=== PATIENT | male | born 1995 | race Caucasian/White ===

== ENCOUNTER 2023-03-31 05:54 | Day surgery (SDC) | payer BC, MEDICAID, SELFPAY ==
[2023-03-31] VITALS (8 sets, daily range): BP systolic 113–153; BP diastolic 73–95; PULSE 73–97; RESP 16–18; TEMP 36.2–36.6; O2SAT 94–99; BMI 35.6
--- NOTE | 2023-03-31 | GALL_PTH ---
PATIENT: BLAZE MONTEMAYOR LOC: [facility] – [place] U#:[id number] AGE/SX: 27/M ROOM: RE03/31/[address]: Dr. Jose Rice MD : 1995 BED: DIS: 03/31/2023 SPEC #: [id number] RECD: 03/31/23 10:51 STATUS: YOLANDA REEugene #: [id number] CARYN: 03/31/23 00:[address]: Jose Rice DEPT: SURGICAL PATHOLOGY RECD BY: Kolby Lyons ENTERED: 03/31/23 10:51 SP TYPE: VICENTE BRISENO DR: Teodoro Lopes, CHIEF RESERVOIR ENGINEERING-C Tissues: Gallbladder, NOS Procedures: Surgery Specimen Level III HEADER OPERATION: Laparoscopic cholecystectomy with IOC PRE-OP DIAGNOSIS: Biliary colic, cholelithiasis TISSUE SUBMITTED: Gallbladder MICROSCOPIC DIAGNOSIS Gallbladder, cholecystectomy: Chronic cholecystitis, cholelithiasis and cholesterolosis. SJ:mike 04/01/2023 MICROSCOPIC DESCRIPTION Slides are reviewed. GROSS DESCRIPTION Received is one container labeled with the patient's name and designated gallbladder. The specimen consists of a gallbladder measuring 6.2 cm in length and up to 2.5 cm in diameter. The external surface is pink-cole, smooth and glistening for the most part. Focally it is granular, hemorrhagic and contains cautery artifact. The gallbladder contains green-yellow mucoid bile and one greenish-yellow stone measuring 1.5 x 1.0 x 1.0 cm. The mucosa also shows several yellowish streaks consistent with cholesterolosis. The mucosa is bile-stained and without any mass lesions. The gallbladder wall measures up to 0.2 cm in thickness. Welding Pantograph Machine Operator sections from the gallbladder and the cystic duct are submitted in one cassette. / SILVINO:mike 03/31/2023 TC:3 CPT: 07573
--- NOTE | 2023-03-31 06:30 | RAD_ITS ---
STUDY: INTRAOPERATIVE CHOLANGIOGRAM. REASON FOR EXAM: Male, 27 years old. PAIN -- RUQ PAIN AND VOMITING FLUOROSCOPY TIME (if supplied): ( 13 seconds ) minutes/seconds. 5.24 mGy TECHNIQUE: An intraoperative cholangiogram was performed by the surgeon. Imaging was submitted. COMPARISON: None. FINDINGS: The intrahepatic biliary ducts are unremarkable. No intraluminal filling defect is seen. Free flow of contrast is seen in the duodenum. RAD/Cholangiogram/ O R,Initial IMPRESSION: Unremarkable intraoperative Cholangiogram. Electronically Signed: Tarik Neal MD at 15:12 EDT ,
[2023-03-31] MEDS: Lactated Ringers 1,000 ML 15 ML IV ×2 (06:48→08:47)
--- NOTE | 2023-03-31 06:50 | PCM.HP.BLA ---
History and Physical Date of Admission: 03/31/23 Intake Vital Signs ? 03/17/2314:44 Height 5 ft 10 in Weight: 248 lb BMI 35.6 BP 130/84 H Blood Pressure Location Rt brachial Position Sitting Respiration 16 Pulse 101 H Pulse Source Monitor Temp 97.3 F L Temp Source Temporal Pulse Oximetry (%) 97 Intake Visit Reasons:?CYCLICAL VOMITING/DYSHAGIA/ACID REGURGITATION Chief Complaint: nausea /vomitting/ dyshagia/acid regurgitation Allergies No Known Allergies Allergy (Unverified 03/17/23 14:46) Medications bupropion HCl 300 mg 24 hr tablet, extended release (Wellbutrin XL) 300 mg PO QAM 03/17/23 [History Confirmed 03/17/23] docusate sodium 100 mg capsule (Colace) 100 mg PO DAILY 03/17/23 [History Confirmed 03/17/23] polyethylene glycol 3350 17 gram/dose oral powder (Miralax) 4 g PO DAILY PRN constipation 03/17/23 [History Confirmed 03/17/23] promethazine 12.5 mg tablet 12.5 mg PO Q6H PRN 03/17/23 [History Confirmed 03/17/23] PFSH Family History?(Updated 03/17/23 @ 14:44 by Jennifer Ng) Grandmother ArthritisUncle Colon cancerMother DiabetesGrandfather Heart disease HPI HPI HPI: Patient is a 27-year-old male here with right upper quadrant pain and vomiting.? Patient has also been spearing seeing nausea and vomiting.? He reports that the pain happens about an hour or 2 after eating.? Patient denies any blood in his vomit.? He does report that he has been having weight loss due to not eating. ROS General General: Yes weight change and fatigue; No appetite, colon cancer, breast cancer or weakness HEENT HEENT: No difficulty swallowing, eye injury, eye surgery, swollen glands or hoarseness Endo Endocrine: No thyroid disease, diabetes mellitus, thyroid cancer, Hair loss, heat intolerance or cold intolerance Skin Skin: No rash or changing moles Breast Breast: No left breast lump, right breast lump, nipple discharge, breast pain, abnormal mammogram, abnormal US or breast enlargement Musc Musculoskeletal: No back problems, arthritis, rheumatoid arthritis, gout or joint pain Cardio Cardiovascular: No murmur, pacemaker, heart disease, atrial fibrillation, high blood pressure, heart attack, heart stent, palpitations, shortness of breat with exertion or chest pain Psych Psychiatric: Yes anxiety; No depression or hearing voices Resp Respiratory: No shortness of breath, No sleep apnea, No cough, No COPD, No asthma, No emphysema and No wheezing Gastro Gastrointestinal: Yes abdominal pain, Yes nausea or vomiting, Yes diarrhea, Yes constipation, No blood in stool, Yes acid reflux, Yes hemorrhoids, No ulcers, Yes gallbladder problem and No black,tarry stools Mikey Hematologic: No blood thinners, No blood disorders, No bleeding, No anemia and No blood clots Neuro Neurologic: No system reviewed and no additional complaints, except as documented, No as per HPI, No abnormal gait, No abnormal hearing, No abnormal movements, No abnormal speech, No behavioral changes, No burning sensations, No confusion, No convulsions, No disequilibrium, No dizziness, No localized weakness, No frequent falls, No headache(s), No lack of coordination, No loss of vision, No memory loss, No numbness, No other visual disturbances, No radicular pain, No restless legs, No sensory deficit, No syncope, No tingling, No tremor(s), No weakness and No other Exam Const General: cooperative Orientation: alert and oriented x3 HENMT Head: normal to inspection Neck Neck: normal visual inspection and full ROM Chest Chest palpation & inspection: normal inspection of the chest Resp Effort & Inspection: normal respiratory effort Auscultation: clear to auscultation bilaterally Cardio Rate: regular rate Rhythm: regular rhythm GI Inspection: non-distended Palpation: soft and tender in the RUQ Skin General: no rashes or lesions noted Neuro General: patient alert and patient oriented x3 Extrem General: full ROM Psych Appearance: grossly normal Mental Status: mental status grossly normal Assessment and Plan Assessment and Plan (1) Biliary colic: ?Status:?Acute (2) Cholelithiasis: ?Status:?Acute ?Qualifiers: ?Cholelithiasis location:?gallbladder??Cholecystitis presence:?without cholecystitis??Biliary obstruction:?without biliary obstruction? Qualified Code(s):?K80.20 - Calculus of gallbladder without cholecystitis without obstruction Plan The patient had an ultrasound shows a gallstone in the neck of the gallbladder.? The patient is also been having nausea and right upper quadrant pain.? I recommended laparoscopic cholecystectomy.? I believe this will take care of his pain and his nausea but if it does not I will perform an EGD. I discussed the procedure in detail with the patient.? I discussed the risks, benefits, and alternatives of the procedure.? I discussed the risks including but not limited to bleeding, infection, injury to surrounding organs such as the liver, bile duct, bowels.? I did discuss the possibility of having to convert to an open procedure as well as the possibility that if any injuries occurred this may necessitate further surgery at a tertiary care center. Jose Rice MD Pager: [facility] [address] [place] [address], [address] [place] [address] Office: I have seen and examined the patient, I have reviewed the H&P. There are no changes
[2023-03-31] MEDS: Cefotetan 2 GM in 0.9% NS 100 ML IV (07:34)
[2023-03-31] MEDS: Bupivacaine 0.25% 30 ML Vial (08:11)
--- NOTE | 2023-03-31 08:17 | EKG12_ITS ---
Test Reason : PREOP Blood Pressure : / mmHG Vent. Rate : 099 BPM Atrial Rate : 099 BPM P-R Int : 180 ms QRS Dur : 094 ms QT Int : 340 ms P-R-T Axes : 059 062 038 degrees QTc Int : 436 ms Normal sinus rhythm Nonspecific ST abnormality Abnormal ECG No previous ECGs available Confirmed by YVETTE ROQUE, JENA ([id number]), editor school photograph PRICILLA JACKSON ([id number]) on 04/06/2023 12:25:50 PM Referred By: Jose Rice Confirmed By:JENA CRAWFORD MD
[2023-03-31] MEDS: Sugammadex Sodium 200 MG/2 ML VIAL IV (08:19)
--- NOTE | 2023-03-31 08:36 | OP.PCM_ITS ---
Report of Operation Date of Procedure: 03/31/23 Pre-Operative Diagnosis: Biliary colic and biliary dyskinesia Post-Operative Diagnosis: Same Surgery/Procedure Performed:: Laparoscopic cholecystectomy with cholangiogram Specimen's removed: Gallbladder Description of Procedure: After obtaining informed consent patient was brought back to the operating room. General anesthesia was induced. The abdomen was prepped and draped in usual sterile fashion. A small midline incision was made superior to the umbilicus and deepened to the level of fascia. The fascia was elevated and incised. Next the peritoneum was elevated and incised in the same fashion. Finger sweep was performed and the Covarrubias trocar was placed into the abdomen. The balloon was inflated. The abdomen was inflated to 15 mmHg. Next a camera was introduced into the abdomen and the abdomen was inspected. Next under direct visualization three 5-mm ports were placed one subxiphoid and 2 subcostal. Next the gallbladder was elevated and retracted toward the right shoulder. The peritoneum was stripped from the gallbladder. The infundibulum was located and retracted laterally. Next the triangle of Calot was dissected and the cystic duct and cystic artery were identified. Cholangiograms were performed. The Tabares clamp was used to clamp across the infundibulum and the catheter needle was inserted into the gallbladder. Under fluoroscopy contrast was instilled into the gallbladder and the common duct, cystic duct as well as proximal hepatic ducts were identified. There was good filling of the duodenum. There were no filling defects noted in the common bile duct. The clamp was removed as well as the needle and the infundibulum was grasped once more. Three hemolock clips were placed across the cystic duct. The cystic duct was then divided leaving 2 clips on the stump. The cystic artery was clipped and divided in the same fashion. The hook cautery was then used to take the gallbladder off of the gallbladder bed. There was some spillage of bile from the side of the gallbladder which was entered during taking the gallbladder off the liver bed. Hemostasis was obtained. Gallbladder fossa was irrigated and no active bleeding or bile leakage was noted. Next the camera was introduced in the subxiphoid port. An Endopouch bag was placed through the umbilical port and the gallbladder was placed into it. The gallbladder was then removed through the umbilical incision. The camera was then reinserted through the umbilical port. The gallbladder fossa was inspected once more and noted to be hemostatic with no leaking bile. The abdomen was suctioned dry. The 5 mm ports were removed under direct visualization. The umbilical port was then removed and the air was removed from the abdomen. Next using an 0 Vicryl suture the umbilical fascia was closed in a [id number] fashion. The umbilical port site was irrigated local anesthetic was administered to all the incisions. All the incisions were closed with interrupted subcuticular 4-0 Monocryl sutures followed by Steri- Strips and dressings. The patient was awoken and taken to PACU in stable condition. Admit VTE Documentation VTE Mechan Device Prophylaxis: SCD's
--- NOTE | 2023-03-31 08:37 | DCINST_ITS ---
Discharge Instructions Procedure Gallbladder Diet Discharge Diet: Light diet - advance as tolerated Activity Discharge Activity: May Not Drive (for 2-3 days or while taking narcotic pain medications.) and - (Do not drive, work heavy equipment or sign legal documents for 24 hours.) May shower in (days): 1 Lifting Restrictions: 20 lbs for 2 weeks Additional Activity Instructions:: Pain medication may cause nausea. You should typically eat light foods as you take your pain medications. Pain medication may also cause constipation. If this is a problem for you, please discuss with your doctor. Dressing / Incision Call your doctor if your incision/area has: Continuous Slow Oozing, Sudden Increased Bleeding, Increased Pain/ Swelling, Increased Redness and Foul Smelling Discharge Call your doctor if you observe: Fever of 101 or Higher Suture Line Care: Avoid Pulling/Pushing and Avoid Pinching/Bending Remove Dressing in: 2 days Additional Dressing/Incision Instructions:: Leave operative bandaids on for 2 days. When you remove dressing, leave Steri-Strips on until your follow-up appointment, or until the Steri-Strips fall off on their own. Follow Up Care Please Follow Up With: Jose Rice MD When: Please call to schedule 2 week follow up appointment. [phone] Test Results: Test results from this visit will be discussed in further detail at your follow- up appointment, if applicable. Discharge Plan Admission Attending Provider: Jose Rice Primary Care Provider: Teodoro Lopes FINISHING MACHINE OPERATOR AUTOMATIC Instructions Additional Instructions / Restrictions: Ibuprofen and Tylenol for pain, oxycodone for breakthrough pain. Discharge Orders/Prescriptions Prescriptions: New oxycodone 10 mg tablet 5 - 10 mg PO Q6H PRN (Reason: pain) 5 Days Qty: 20 0RF No Action promethazine 12.5 mg tablet 25 mg PO Q6H PRN (Reason: Nausea) polyethylene glycol 3350 [Miralax] 17 gram/dose powder 17 g PO DAILY PRN (Reason: constipation) bupropion HCl [Wellbutrin XL] 300 mg tablet extended release 24 hr 300 mg PO QAM docusate sodium [Colace] 100 mg capsule 100 mg PO DAILY famotidine 40 mg tablet 40 mg PO DAILY Label Comments: TAKE 1 TABLET BY MOUTH AT BEDTIME omeprazole 40 mg capsule,delayed release(DR/EC) 40 mg PO DAILY Label Comments: TAKE 1 CAPSULE BY MOUTH EVERY DAY Referrals / Follow Up: Teodoro Lopes FINISHING MACHINE OPERATOR AUTOMATIC, FINISHING MACHINE OPERATOR AUTOMATIC-C [Primary Care Provider] - Disposition Disposition (needs filled in before D/C Order can be placed): Home, Self Care
[2023-03-31] MEDS: Ketorolac 30 MG/ML Syringe IV (08:51)
[2023-03-31] MEDS: Acetaminophen 325 MG Tablet 650 MG PO (10:20)
== END 2023-03-31 10:55 | disposition home or self-care (01) ==
LOC: SDC 05:58 → AC 05:59
PROVIDERS: PCP Nurse Practitioner Family; Referring Provider Surgery; Visit Provider Surgery
PROC: (CPT 47610; principal; 2023-03-31 07:10)
DX: K80.10 Calculus of gallbladder with chronic cholecystitis without obstruction (principal); Z79.899 Other long term (current) drug therapy
CPT/HCPCS: 47563; 00790; 74300; 76000; 88304; 93005; J7120; J2405

== ENCOUNTER 2023-08-08 08:00 | Outpatient (RCR) | payer BC, SELFPAY ==
--- NOTE | 2023-08-08 10:18 | BH.SGPN.GN ---
Behaviors/Verbalizations/Mental Status: []Pt alert and oriented, casually dressed and groomed. Eye contact good. Motor activity appropriate. Speech within normal limits. Affect congruent, mood euthymic. Thoughts linear, logical, no signs of hallucinations or delusions. Client Response/Progress/Benefit: [] Pt was attentive in group discussions, it is his first day of IOP tx and therefore is still adjusting to group environment. Attentive during psychoeducation on 4 types of conflict styles (Competing, Collaborating, Avoiding, and Accommodating). Listened as group worked to define conflict and identify how conflict can be beneficial. Again remained attentive, though a passive participant, as group identified barriers to addressing or managing conflict which included: not wanting to hurt others, unmanaged emotions, assumptions, and cognitive distortions. Benefited from group due to increase insight and awareness of benefits to conflict, conflict styles, and obstacles to managing conflict. Will continue in IOP to reduce negative thinking patterns, improve mood stability, and prevent decompensation. Narrative Note: []
--- NOTE | 2023-08-08 11:05 | BH.COMM ---
Communication Note Communication with Client Communication Note: Met with patient to complete initial paperwork. No significant changes since pre-admission assessment. Has been continuing with weekly counseling with therapist (Kolby). Medication compliant. Continues to attend work daily. Completed C-SSRS. Pt reports long-standing daily fleeting suicidal thoughts and survival ambivalence. Pt states that he is currently at or near his baseline for suicidal thoughts. No specific trigger to worsening thoughts over the past 2 years. Endorses fleeting SI throughout the day and some thoughts of methods (cutting self). Denies any plan or intent in the past month. One previous SA in 2017. Protective factors (pets, family, reasons for living, work). Future-oriented (work, moving back in with parents). Has a completed safety plan through his outpatient therapist. States it is printed out at home. He also is able to verbally recall it during assessment. Aware of crisis numbers. He noted during pre-admission screening and again today when referencing suicide I'm not going to do it. Verbalizes he can keep himself safe. Long-standing hx of self-injurious behaviors reported numerous healed scars on his legs. Admits to self-harm last night (superficial cut on his chest just below shoulder). Trigger was anxiety related to starting IOP today. Struggles to verbalize purpose behind cutting aside from indicating sometimes i like to peel my skin. Possibly pain is distraction. His primary coping skill appears to be medical cannabis which he is prescribed for PTSD. Does not present as imminent danger as according to pt is at or near baseline which has been present for almost 2 years. Long-standing daily fleeting SI which is mostly passive in nature. Denies any plan or intent for suicide. Safety plan available and able to verbalize. Reports can keep himself safe. Denies access to guns. Aware of crisis numbers. No family hx of completed suicide.
--- NOTE | 2023-08-08 13:59 | BH.MDN_ITS ---
Multi-Disciplinary Note Note 30-min Individual: Time Started:: 12:15 Date: 08/08/23 Purpose of session/treatment goals addressed:: Used the session to introduce calming and mindfulness skills as patient was visibly anxious. Eye Contact:: Poor Motor Activity:: Restless Appearance:: Casual Speech:: Appropriate Mood:: Anxious and Depressed Affect:: Congruent Thoughts:: Linear, Logical and No evidence of hallucinations/delusions noted Staff Interventions:: mindfulness skills, rapport building, completed risk assessment / safety planning (refer to communication note from this AM) and taught coping skills Client Response:: It is standard protocol for a therapist to meet with patients after their first day of IOP to answer questions and process the day. Pt appeared to have mild anxiety in the group setting however when he sat on the couch in therapist's office he began to become very restless, leg tapping, and experienced SOB. Pt was encouraged to practice his breathing skills and therapist walked him through 5 Senses and he was able to calm. Pt was focused on his struggles with discussing his past trauma with IOP staff today. I should be able to talk about it however I just can't. Visibly upset with himself. Responded well to challenging his expectations and assured him that he has 6-8 weeks in the program and that he didn't have to address everything on day one. Focused on his resiliency and making it through his first day of IOP. He reports that traumatic event is the main source of his ruminations, anxiety, and depression. While to trauma is not recent he experienced some type of trigger in 05/2023. He entered outpatient counseling at [facility] to begin EMDR however therapist informed him that his overall mood needs to be more stable before EMDR is started. Towards the end of the session pt was more calm AEB smiling and discussing video games. Risks/Concerns:: refer to communication note from earlier today regarding risk assessment. Long-standing fleeting SI daily for 2 years (baseline). Thoughts are primarily passive however on occasion he has thoughts of methods. Denies any plan or intent. No access to guns. Progress Toward Goals/Plan:: Limited progress as this was pt's first day in IOP. Struggling to address past trauma and its current impact on functioning. While IOP is not trauma-focused it would be beneficial to know aspects of his trauma to work on identifying/managing triggers, developing coping skills, and to provide psychoeducation. Obstacles include unhealthy coping skills (sleep, isolation, avoidance, and cannabis).HAYLEY signed for pt's outpatient therapist. Plan to reach out and collaborate to gain better understanding. Will continue in IOP to maintain safety, stabilize mood, prevent decompensation, and increase healthy coping skills. Time Stopped:: 12:45
--- NOTE | 2023-08-10 08:30 | BH.NA_ITS ---
Physical Data Vital Signs Pulse Rate: 93 Blood Pressure: 145/88 Height/Weight Height: 1.78 m Weight:: 111.13 kg Weight in Pounds: 245.0 lbs Nutritional History Appetite Nutritional Instructions: Describe your appetite:: Fair Additional nutritional information:: Client states his weight fluctuates a lot, stating 2 weeks ago he weighed 225lbs. Client states he will go 1-2 days without eating and then binge, but denies purging. Functional Assessment Sleep Pattern Describe any problems with sleeping: Client states he spends up to 18 hours per day in bed, but states he does not know how much of that is spent sleeping. Activities Motor Activity:: Other (client tapping feet during entire assessment) Sensory/Communication Assess Communication Problems Do you have difficulty understanding what people are saying?: No Learning Assessment Education What is your level of education?: High School Medical Problems/History Cardiac Conditions Cardiovascular: Other (See comments) (history of Kawasaki disease) Pain Assessment Do you have acute or chronic pain?: No Family History Family History (Updated 03/17/23 @ 14:44 by Jennifer Ng) Grandmother Arthritis Uncle Colon cancer Mother Diabetes Grandfather Heart disease Surgical History Surgical History Have you had any surgeries? If so, list type and date:: Yes (cholecystectomy, wisdom teeth removal) Substance Abuse Substance Abuse Please describe substance abuse in the last 30 days:: Client states he has been sober from alcohol for about 1 year. Client denies regular tobacco use. Client states he has been using marijuana off and on since age 21, and as of May 2023 uses high amounts of THC per day. Client states he has his medical marijuana card as of May 2023, and uses a high dose tincture and up to 140mg per day. Client states he has experimented with mushrooms and LSD in the past. Client states he rarely uses caffeine now, and has an energy drink once every week or two. Mental Status Summary Mental Status Significant Findings/Observations on Appearance and Mood:: Client is alert and oriented x 4. Client is cooperative with assessment, but avoids eye contact almost the entire time and taps feet. Client is casually groomed. Client's voice has normal rate and volume. Client makes logical associations and has normal processing. Client denies delusions/hallucinations. Client reports longstanding passive thoughts of , but denies SI with plan or intent. Suicide Assessment Suicidal Ideation Are you currently or have you been suicidal in the past?: Yes Suicidal Intentional Rating Scale (SIRS): Suicidal thoughts (past) Physician Notification Past Psychiatric History MH Treatment Hx Past Psychiatric Medications:: Wellbutrin (recently stopped) Latuda and Trazodone (in [id number]), Zoloft (for about 1 month) Age of first mental health symptoms: Client states he has felt anxious and depressed most of my life and first took medication for mental health around age [age]. Describe (age, circumstance, etc) any past hospitalizations: 2016- hospitalization for suicide attempt, client does not describe further Current providers for mental health treatment (counselor, psychiatrist, residential case manager, etc.): [facility] for counseling Fall Risk Assessment Age Age: Less than 60 Mental Status Mental Status: Willing & able to ask for assistance when needed Physical Status Physical Status: No problems Impairments Impairments: None Elimination Elimination: Continent AND independent Gait or Balance Gait or Balance: Walks independently Hx of Falls History of falls in the past 6 months: No known history Medications/Substances Psychotropics:: Antidepressants Medications/substances used within the past 24 hours or ordered to administer: 1-2 of the medications/substances listed above Total Score Total Points:: 1 RN Summary of Impressions Level of Care How do the client's current symptoms and functional deficits support need for this level of care?: Client was referred to IOP by his outpatient counselor for frequent panic attacks and fleeting SI. Client states he has been dealing with PTSD symptoms for several years, but they worsened in May of this year. Client states he had attempted to start EMDR but was told he was too symptomatic and unstable to start. Client states since this worsening of mental health in May, he has been heavily using THC. Client reports almost daily panic attacks, and states he has been having panic attacks frequently for several years. Client states longstanding passive thoughts of , but denies active SI at this time. Client reports recently he has been staying in bed almost all day and reports decreased energy, ruminations, and isolation. Client reports a few days ago, he cut his left chest, stating I felt like I wanted to peel my skin off. Small superficial cut to left chest. IOP will promote gains and prevent further decompensation while providing social support and skills training.
[2023-08-10 08:50] VITALS: BP 145/88; PULSE 93
--- NOTE | 2023-08-10 10:20 | BH.SGPN.GN ---
Behaviors/Verbalizations/Mental Status: []Pt alert and oriented, neatly dressed and groomed. Eye contact fair. Motor activity appropriate. Speech within normal limits. Affect flat, mood anxious. Thoughts linear, logical, no signs of hallucinations or delusions. Client Response/Progress/Benefit: [] Pt responded well to session AEB taking notes and listening attentively to others. Group discussed the benefits of managed anger and anger as a secondary emotion. Pt was a passive participant but appeared to be listening during small group discussion. Pt completed worksheet on anger triggers and personal warning signs of anger. ?Appeared to benefit from increased knowledge of the anger cycle as well as personal triggers. Will continue IOP tx to prevent decompensation, maintain safety, and gain healthy coping skills. Narrative Note: []
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
--- NOTE | 2023-08-10 12:35 | BH.MDN_ITS ---
Multi-Disciplinary Note Note 30-min Individual: Time Started:: 12:15 Date: 08/10/23 Purpose of session/treatment goals addressed:: Review current symptoms and progress in IOP. Risk assessment. Eye Contact:: Poor and Intense (towards end of the session pt's eye contact became intense. ) Motor Activity:: Restless Appearance:: Casual Speech:: Other (elevated at times) Mood:: Anxious and Irritable Affect:: Labile Thoughts:: Linear, Logical and No evidence of hallucinations/delusions noted Staff Interventions:: thought challenging and completed risk assessment / safety planning Client Response:: Similar to Tuesday pt presented with moderate anxiety and restlessness in group, however when he arrived in therapist's office he immediately got tearful, sat on the couch, began to rock, and become significantly restless. Noticeable change in mood and behaviors. He was also irritable, refused to attempt breathing exercises/mindfulness (which he reported on Tuesday were helpful) and was sarcastic/rude at times to therapist. We briefly discussed implementing the [facility] suicidality scale which is from 1-10 designed for client with long-standing daily SI/self-harm. Therapist was attempting to get a better understanding of his baseline SI which appeared to anger him. Visibly angry with therapist. Again allowed him to calm self and briefly changed the topic of conversation to plans for the rest of the day to which pt responded in a very agitated manner several comments along the lines of You want me to say I'm going to go kill myself?. Therapist set firm boundaries regarding his communication style and overall demeanor. Pt responded well and apologized. Therapist then asked risk assessment questions. He denies active suicidal ideations, plan, or intent. Pt shared to several staff that he has daily passive thoughts of which often leads to thinking about methods. This thinking is long-standing (2 years). Able to contract for safety. Agreeable with reviewing his safety plan at home. He reports that once he arrives home and pets his cat he will feel better. Also appears to rely heavily on his cannabis to calm emotions and escape. Cannabis is prescribed legally however the effects are short-term resulting in overuse. Agreeable not to isolate all evening and plans to go over a friend's house in [place] or his parents house. Future-oriented regarding new medication prescribed today. Protective factors reported. No ac cess to guns. We also set up an appt for tomorrow AM. Towards the end to the session pt was smiling, making jokes, discussing aspects of group counseling, and once again displayed overall a drastic shift in emotion/behavior. At one point he took a sucker out of candy jar and was sitting back on couch smiling while looking at therapist. Risks/Concerns:: refer above. Baseline SI according to patient. Therapist offered a voluntary admission to a psychiatric unit however he declined. As these thoughts are baseline and he denies active SI, plan, or intent no grounds for calling police or seeking involuntary assessment at ER. Progress Toward Goals/Plan:: Limited progress noted today however this was only his second day in IOP. According to pt her prefers to avoid and escape his issues and thoughts and IOP groups/assessments force him to think about his mental health. It is understandable how this would lead to frustration and irritability. Admits that he verbally lashed towards therapist about hurting himself b/c he was angry and has no intent. Low frustration tolerance. Spends most of the day sleeping. When awake utilizes prescribed cannabis to manage thoughts and emotions. While at IOP these unhealthy coping skills are not available. It is unclear reasons for rapid mood changes when alone with this therapist as he appears to be under control in group and with program psychiatrist today. On admission paperwork he noted no preference regarding the sex of therapist and his outpatient therapist is male as well. Will continue in IOP to maintain safety, increase healthy coping, stabilize mood, improving functioning. Encouraged increasing IOP from 3 days a week to 4 however pt declined. I can show up an additional day but I won't participate. His motivation is erratic and completely dependent on current mood and situation. He wants to improve however admits that he doesn't want to participate or engage. Agreeable to meeting with this therapist again tomorrow to prepare goals for treatment. Will discuss with client if he wishes to have female therapist as we still are unsure pt's trauma. Time Stopped:: 12:45
--- NOTE | 2023-08-10 12:37 | BH.DR.ITP ---
Initial Treatment Plan Patient Information Visit Information: ADMISSION DATE: EXPECTED LOS: 4-6 weeks Problems/Symptoms Problem #1:: Anxiety Symptom:: Panic attacks, worry, rumination, isolation, avoidance, dissociation, flashbacks, reexperiencing, nightmares Problem #2:: Depression Symptom:: Sadness, hopelessness, guilt, low energy, anhedonia, passive thoughts of , passive suicidal ideation decreased concentration
--- NOTE | 2023-08-11 09:00 | BH.SGPN.GN ---
Behaviors/Verbalizations/Mental Status: [] Eye contact is poor. Motor activity is restless. Appearance is casual. Speech is Appropriate. Mood is anxious. Affect is congruent. Thoughts are linear and logical. No evidence of psychosis. Reviewed daily check in sheet and no reports of suicidal ideations or intent. Client Response/Progress/Benefit: [] Pt was an active participant in group discussion. Attentive at times. Shared with the group that yesterday was a rough day. He did not elaborate however refer to multidisciplinary note. He followed through with safety plan set in place yesterday as he did not isolate, visited his parents, and picked up his prescriptions. Emotion for today is discomfort. He briefly shared with the group his struggles with anxiety. While he was visibly uncomfortable he did engage, smiled at times, and was vulnerable.Progress noted. Improved eye contact, engagement, and emotion regulation. Benefited from group support, encouragement, and feedback. Will continue in IOP to maintain safety, improve functioning to return to work, and to increase healthy coping skills. Narrative Note: []
--- NOTE | 2023-08-11 12:00 | BH.MDN ---
Multi-Disciplinary Note Note 30-min Individual: Time Started:: 08:35 Date: 08/11/23 Purpose of session/treatment goals addressed:: Treatment planning, psychoeducation, and rapport building Eye Contact:: Good Motor Activity:: Appropriate Appearance:: Casual Speech:: Appropriate Mood:: Anxious Affect:: Congruent Thoughts:: Linear, Logical and No evidence of hallucinations/delusions noted Staff Interventions:: psychoeducation on: (behavioral activation. ), rapport building and treatment planning Client Response:: Pt presented today 30 minutes late to appointment however was in good spirits. He followed through with safety plan yesterday as he visited his parents and picked up his medications. Due to limited time a majority of the session was focused on introducing behavioral activation and its role in mental health. We also developed behavioral activation goals which IOP staff will track. Pt was responsive to psychoeducation and goal setting. We also talked briefly about his Cannabis use, frequency, and its impact on his mental health. Pt reports optimal benefits about 20 minutes after tincture use which are suppose to last up to 5 hours. Uses several times throughout the day. Risks/Concerns:: denies active SI, plan, or intent today. Due to pt being late this therapist did reach out to his emergency contact and had brief discussion. FERMIN was signed. His mother reported long-term SI however didn't have concerns about him last night. Pt was late this AM due to waking up late. Progress Toward Goals/Plan:: Progress noted from yesterday. Followed through with coping strategies last night and started on his new medications. Less restless and agitated this AM. Was not tearful and his eye contact was appropriate. Responded well to session. Plan to continue in [facility] to maintain safety, stabilize mood, decrease unhealthy coping, and improve functioning. Time Stopped:: 09:00
--- NOTE | 2023-08-11 14:42 | BH.MTP ---
Master Treatment Plan Patient Information Program Physician:: Madeleine Sosa MD Primary Therapist:: Kenji Le [facility] Psychiatric Diagnoses Psychiatric Diagnoses:: 1. PTSD 2. Panic disorder 3. Major depression, recurrent, severe without psychosis 4. Social anxiety disorder 5. Strong cluster B traits 6. THC use disorder Diagnosis Code(s):: F43.12, F41.0 Estimated LOS Estimated LOS (in weeks):: 8 Problem/Goal #1 Problem/Goal #1 Stated Goal:: Client will increase emotional regulation and reduce intensity and duration of panic attacks, avoidance, dissociative symptoms, and trauma triggers AEB reduction of overall DSM-5 outcome scales as well as anxiety and dissociation domains. Description of Barriers: Isolation, avoidance behaviors, unable/unwilling to discuss trauma which is at core of emotional dysregulation, limited benefit from traditional outpatient, reliance on unhealthy coping (cannabis, sleep) to manage emotions, low frustration tolerance. Functional Impact: Missing work often, isolation, limited social outlets, daily panic attacks, mental health decompensation for several months. Goal Relevant Strengths/Supports: intelligent, strong support from parents/work. Objectives Objective #1: Stated Objective: Client will identify 2-3 cognitive distortions or mistaken beliefs that lead to rumination and learn 2-3 ways to manage these thoughts to reduce symptoms. Interventions: Through individual and group counseling will provide education on cognitive distortions and connection between thoughts, emotions, and feelings. Therapist will use CBT and DBT techniques to help increase mindfulness and thought challenging/reframing negative thoughts. Discharge Criteria: Will be able to identify 2-3 cognitive distortions and 2-3 coping strategies to address these distortions. Target Date: 10/05/23 Review Date: 09/07/23 Objective #2: Stated Objective: Implement calming and coping strategies to reduce overall anxiety and to cope with the experience of panic. Interventions: Through individual and group counseling will teach client coping skills to improve emotional regulation, mindfulness, and distress tolerance to help client cope with anxiety in the moment. Discharge Criteria: Able to identify and consistently utilze 3-4 in the moment calming skills Target Date: 10/05/23 Review Date: 09/07/23 Problem/Goal #2 Problem/Goal #2 Stated Goal:: Client will increase mood stability and reduce depression, fleeting suicidal ideations, and hopelessness AEB reduction on DSM-5 depression and suicidal ideation domains. Description of Barriers: Isolation, avoidance behaviors, unable/unwilling to discuss trauma which is at core of emotional dysregulation, limited benefit from traditional outpatient, reliance on unhealthy coping (cannabis, sleep) to manage emotions, low frustration tolerance. Functional Impact: Missing work often, isolation, limited social outlets, daily panic attacks, mental health decompensation for several months. Goal Relevant Strengths/Supports: intelligent, strong support (mother) Objectives Objective #1: Stated Objective: Client will work with therapist to develop a ?crisis plan? which includes emergency telephone numbers, internal/external coping strategies for SI/overwhelming emotions, lists of supports, warning signs, positive aspects of life, and motivations. Interventions: Through individual and group counseling pt will learn and practice various internal and external coping skills for emotional dysregulation. Therapist will provide patient with safety plan worksheet (if he desires) and work with pt. to develop individualized plan which includes internal coping skills, external coping skills, support, and crisis numbers. Discharge Criteria: Complete safety plan and be able to verbalize plan to therapist (if he chooses not to complete worksheet). Target Date: 10/05/23 Review Date: 09/07/23 Objective #2: Stated Objective: Client will create a behavior activation plan which will include a daily schedule with activities to increase mood and activity. Interventions: Through individual and group counseling will provide education on behavior activation and opposite action as well as help client identify activities, in line with increasing connection with others, decreasing isolation, and increasing purpose/social interaction. Discharge Criteria: Pt will have developed daily behavior activation goals and increased daily purpose. Target Date: 10/05/23 Review Date: 09/07/23
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
--- NOTE | 2023-08-12 09:00 | BH.SGPN.GN ---
Behaviors/Verbalizations/Mental Status: [Patient was alert and oriented, appropriately dressed and groomed. Eye contact was good, motor activity normal, speech within normal limits. Affect congruent, mood content. Thoughts linear, logical, no signs of hallucinations or delusions. Reviewed Patients symptom tracker and the patient reports slightly below baseline. Therapist will check in with the patient to ensure safety.] Client Response/Progress/Benefit: [ Patient was engaged and open to the discussion. Patient reported his mood to be ?anxious?. Patients first win was that although he had a challenging day on Tuesday, he was able to cope. His second win was that he did opposite action and did not isolate when he wanted to. Patients stressor was being at group has been hard for him. The group reassured him that the first week is rough and that they got more comfortable after a few times of coming. Patient was interactive and respectful with other group members about their mental wins and stressors. Patient benefited from the discussion by listening to feedback and giving input on his peer?s stressors and mental health wins. Patient will continue with IOP treatment to help develop healthy skills, promote mood stability, and practice coping skills for anxiety. ] Narrative Note: []
--- NOTE | 2023-08-12 10:10 | BH.SGPN.GN ---
Behaviors/Verbalizations/Mental Status: [] Client alert and oriented, casually dressed and groomed. Eye contact good. Motor activity appropriate. Speech within normal limits. Affect congruent, mood euthymic and anxious. Thoughts linear, logical, no signs of hallucinations or delusions. Client Response/Progress/Benefit: [ ] Client was an active participant, AEB taking notes and providing some input in group discussions and activities. Attentive during psychoeducation. Client engaged during interactive discussion in which the group defined self-care and discussed its benefits. Group discussed barriers to engaging in self-care. Client along with group identified barriers which included time, feelings of guilt, struggling with self worth, and desire to put others first. Client participated in small groups where they worked to identify common self-care ?myths?. Benefited from increased awareness of self-care, its benefits, and the consequences of not utilizing self-care strategies. Will continue IOP tx to prevent decompensation, increase overall functioning, and continue to improve mood stability. Narrative Note: []
--- NOTE | 2023-08-12 11:10 | BH.SGPN.GN ---
Behaviors/Verbalizations/Mental Status: [] Client alert and oriented, neatly dressed and groomed. Eye contact good. Motor activity appropriate. Speech within normal limits. Affect congruent, mood anxious. Thoughts linear, logical, no signs of hallucinations or delusions. Client Response/Progress/Benefit: [] Client engaged participant AEB completing self-assessment worksheet and providing input throughout discussion. Client completed worksheet identifying current self-care practices and what self-care activities pt wants to start using. Client selected professional self-care to begin practicing more consistently. Client plans to do this by finding ways to inspire himself and listening to his needs. Appeared to benefit from completing the self-care evaluation and gaining insights into current self-care practices, as well as identifying areas in which client would like to improve upon. Client will continue IOP tx to prevent decompensation, increase emotional regulation skills, and improve daily functioning. Narrative Note: []
--- NOTE | 2023-08-15 09:00 | BH.SGPN.GN ---
Behaviors/Verbalizations/Mental Status: [Patient was alert and oriented, appropriately dressed and groomed. Eye contact was poor, motor activity normal, speech within normal limits. Affect congruent, mood tired. Thoughts linear, logical, no signs of hallucinations or delusions. Reviewed Patients symptom tracker and the patient reports depressed mood, anxiety/panic attacks, agitation/irritability/anger, self-harm urges, and thoughts/risk of suicide within normal limits.] Client Response/Progress/Benefit: [ Patient was engaged and open to the discussion. Patient reported his mood was ?disoriented?.? The patients first win was that he did some maintenance cleaning over the weekend which made him feel good. The second win was that he has been doing some 3D modeling on his computer which is something he enjoys. He?s been practicing these models and printing them. His stressor is that he is on a new medication that is making him tired and disorienting him. Patient was interactive and respectful with other group members about their mental wins and stressors. Patient benefited from the discussion by listening to his peer?s stressors and mental health wins. Patient will continue with IOP treatment to help develop healthy skills, promote mood stability, and improve distress tolerance. ] Narrative Note: []
--- NOTE | 2023-08-15 10:10 | BH.SGPN.GN ---
Behaviors/Verbalizations/Mental Status: []Eye contact is fair, at times good. Alert and oriented. Motor activity is appropriate. Appearance is casual. grooming is appropriate. Speech is Appropriate. Mood is anxious. Affect is constricted. Thoughts are linear and logical. No evidence of psychosis or hallucinations. Client Response/Progress/Benefit: []Client showed increased engagement and participation compared to previous group sessions he has attended. Client contributed a couple of times and appeared to be taking notes throughout. Group attentive during psychoeducation about emotion regulation and dysregulation. Appeared to connect with scenarios reviewed in group on emotion regulation vs dysregulation. Client benefited from session by gaining an increased understanding on the importance of managing emotions. Client to continue IOP to improve daily functioning, increase healthy coping, and prevent decompensation.
--- NOTE | 2023-08-15 11:10 | BH.SGPN.GN ---
Behaviors/Verbalizations/Mental Status: []Pt alert and oriented, casually dressed and groomed. Eye contact fair. Motor activity restless. Speech within normal limits. Affect constricted, mood anxious. Thoughts linear, logical, no signs of hallucinations or delusions. Client Response/Progress/Benefit: [] Pt engaged in session AEB Pt listening attentively to peers and providing input. Attentive during psychoeducation on 4 zones of regulation. Pt able to identify feelings and behaviors for each zone. Pt identified coping skills one can use to support self in each zone. Identified one skill from each zone he can practice which included: accomplishment journal, going to work, mindfulness and breathing. Benefited from increased education on zones of regulation or stages of alertness for emotions and healthy coping skills to use for each zone. Will continue IOP tx to improve distress tolerance, increase healthy coping skills, and prevent decompensation.
--- NOTE | 2023-08-17 09:00 | BH.SGPN.GN ---
Behaviors/Verbalizations/Mental Status: [] Eye contact is poor. Motor activity is restless. Appearance is casual. Speech is Appropriate. Mood is anxious. Affect is congruent. Thoughts are linear and logical. No evidence of psychosis. Pt did not hand in daily check-in sheet. Therapist and psychiatrist are scheduled to meet with him today. Client Response/Progress/Benefit: [] Pt choose to not participate in group dicussion. Attentive at times. Restless with poor eye contact. Declined to share. No progress noted. Limited benefit noted as he appears distracted and anxiety throughout the group. He did smile at times during some group discussions meaning he was listening and engaged. Plan is to continue in IOP to maitnain safety, stablzie mood, increase healthy coping, and to improve functioning. Narrative Note: [] Behaviors/Verbalizations/Mental Status: [] Eye contact is poor. Motor activity is restless. Appearance is casual. Speech is Appropriate. Mood is anxious. Affect is congruent. Thoughts are linear and logical. No evidence of psychosis. Pt did not hand in daily check-in sheet. Therapist and psychiatrist are scheduled to meet with him today. Client Response/Progress/Benefit: [] Pt choose to not participate in group dicussion. Attentive at times. Restless with poor eye contact. Declined to share. No progress noted. Limited benefit noted as he appears distracted and anxiety throughout the group. He did smile at times during some group discussions meaning he was listening and engaged. Plan is to continue in IOP to maitnain safety, stablzie mood, increase healthy coping, and to improve functioning. Narrative Note: []
--- NOTE | 2023-08-17 11:36 | BH.MDN_ITS ---
Multi-Disciplinary Note Note 45-min Individual: Time Started:: 10:30 Date: 08/17/23 Purpose of session/treatment goals addressed:: Reviewed current symptoms and progress in IOP. Eye Contact:: Fair Motor Activity:: Restless Appearance:: Disheveled Speech:: Appropriate Mood:: Anxious and Depressed Affect:: Congruent Thoughts:: Linear, Logical and No evidence of hallucinations/delusions noted Staff Interventions:: psychoeducation on: (Anxiety continuum, cognitive distortions. ), CBT techniques and rapport building Client Response:: Initially pt presented as restless stating that he felt as if he was zoning out during group. Symptoms present as dissociation and depersonalization mostly like due to trauma, which he is reluctant to discuss. Able to calm after brief distraction. Utilized the session to focus on introducing anxiety continuum (0-10) and physiological warning signs for his anxiety. Goals was to increase awareness of anxiety at lower ends of the continuum and to implement coping skills early to prevent reaching level 10 ( panic). According to pt 3-4; Pacing, talking to self, self-comforting behaviors, shakes 5-6; Zoning out, increased HR, eyes bugging out 7-8; punching self, urges to punch things, angry 8-10; Panic, shutdown, laying on the ground. Responded well to psycheducation. Plan is to implement calming skills, thought reframes, and affirmations at early anxiety. Agreed to utilize these BEFORE weed. Risks/Concerns:: Pt did not hand in his daily symptom tracker this AM. He reports that he is at or below his baseline on most days. No reports of active suicidal ideations, plan, or intent. Future-oriented. Progress Toward Goals/Plan:: Pt becoming more comfortable in IOP per report. Future-oriented. Plans to speak with his work this afternoon about expectations. He has not worked since starting IOP and feels guilty. We discussed possibly working on a reduced schedule as he does find some benefit from working and if not working isolates. In the past few weeks he will stay at home, isolate, and play video games which he understands is comfortable however not helpful for his mental health. He is utilizing behavioral activation and opposite action and has benefited slightly from this. He spoke for several minutes about goals set last week and his plans to work on a creative project. Hopeful and appears passionate which is improvement. Primary coping skills remains cannabis use. Anytime he encounters a trauma trigger or unpleasant thought he will utilize cannabis. This pattern has impacted his functioning, motivation, energy, and increased his depression. Cannabis helps momentarily with anxiety however lacks any healthy coping skills or thought-reframing skills. Continues to report daily depression, anxiety, and passive suicidal ideations however these have decreased in duration, intensity and frequency. Smiling and more engaged during this session. Time Stopped:: 11:15
--- NOTE | 2023-08-17 11:59 | PCM.BH.PN ---
Progress Note Progress Note: History of Present Illness/Interim History: The patient is a 28-year-old single male with a history of PTSD, panic disorder, depression and anxiety who is seen in follow-up at the [facility]. I last saw the patient 1 week ago and Zyprexa was started and his propranolol dose was increased. The patient states that he is been compliant with the medication changes and is tolerating the medication well. He if at first felt a little tired on the Zyprexa but that has lessened. According to the staff the patient has shown some improvement and has been able to engage somewhat during the groups. The patient states that he feels different and describes it as overall less anxious and less depressed. He feels emotionally better. He has not begun to exercise yet and thinks if he did that would help him improve more. He still endorses sadness and occasional hopelessness but less than before. He continues to have passive thoughts of but again less than a week ago. He also admits to passive, fleeting thoughts of which are less intense and of less duration than 1 week ago. He denies plan for suicide. He denies active suicidal ideation, hallucinations, delusions or homicidal ideation. He has not done any self-harm since I saw him a week ago and at that time he had done it 3 days earlier. He continues to use high doses of marijuana tincture and has been a little inconsistent in what he describes as his dose. He does say he decreased his marijuana use somewhat in the past week. His appetite is improved and he is trying to eat healthfully. He is trying to keep more regular sleep-wake hours and sleep is good still. Current Psychiatric Medications: [] Zyprexa 5 mg p.o. nightly (x1 week); propranolol 20 mg p.o. twice daily (x1 week); Paxil 20 mg p.o. daily (x3 weeks). Mental Status Examination: [] The patient is a 28-year-old male who appears normal for stated age and is casually dressed and groomed with good hygiene. He is ambulatory with a normal gait and no longer has any psychomotor agitation. Eye contact continues to be fair and the patient looks down for most of the interview but occasionally does look up at the interviewer and this percentage of good eye contact is improved. Speech is normal rate and rhythm and fluent with no pressure. Mood is depressed. Affect is constricted and not labile today. Patient does not appear panic or tearful. Thought process is goal-directed and organized. Thought content: The patient appears hopeful for the future and does not apologize during the interview. There is evidence of passive thoughts of and passive suicidal ideation. There is no evidence of active suicidal ideation, plan for suicide, hallucinations, delusions or homicidal ideation. Reality testing is intact. Judgment is intact. Insight is limited but fair. Impulsivity is high. Diagnoses: [] 1. PTSD 2. Panic disorder 3. Major depression, recurrent, severe without psychosis 4. Social anxiety disorder 5. Rule out borderline personality disorder 6. THC use disorder 7. Primary support and work issues Plan: [] The patient will continue the IOP at [facility] in behavioral health as the structure, support, education and group therapy will hopefully prevent worsening of the patient's symptoms that could require hospitalization. He felt safe during the interview and if it anytime he does not feel safe he will let us know or go to the emergency room. The patient will continue to try to keep a regular sleep-wake cycle, exercise regularly and to eat healthily. He will continue his current medication regimen and no medication changes were made today. He is encouraged strongly to decrease his amount and use of marijuana. He will continue to follow-up with his outpatient providers and I will see the patient in follow-up in 2 weeks.
--- NOTE | 2023-08-19 09:00 | BH.SGPN.GN ---
Behaviors/Verbalizations/Mental Status: [] Eye contact is poor. Motor activity is restless. Appearance is casual. Speech is Appropriate. Mood is anxious. Affect is congruent. Thoughts are linear and logical. No evidence of psychosis. Reviewed daily check in sheet and pt reports 1/5 for suicidal ideations and 1/5 for intent. Client Response/Progress/Benefit: [] Pt did not participate in group discussions. Attentive at times. Was noted to be restless with poor eye contact throughout the group. Daily symptom tracker notes 4/5 for depression, 3/5 for irritability, and 2/5 for urges for self-injurious behaviors. Limited progress noted as pt choose not to share. He does nod his head at times when peers are discussing topics so he might be benefiting from support and connection with others. Will continue in IOP to maintain safety, stablize mood, decrease anxiety, and improve functioning to return to work. Narrative Note: []
--- NOTE | 2023-08-19 10:05 | BH.SGPN.GN ---
Behaviors/Verbalizations/Mental Status: [] Eye contact is fair. Motor activity is appropriate. Appearance is casual. Speech is Appropriate. Mood is depressed. Affect is constricted. Thoughts are linear and logical. No evidence of psychosis. Client Response/Progress/Benefit: []Pt engaged participant AEB listening to others, engaging in activity, and providing feedback at times. Attentive during psychoeducation and provided insight into obstacles in the way of mental wellness. Pt shared with group current mental health reality and desired mental health reality. Stated coming to IOP as one step he is currently making to get closer to desired reality. Identified barriers to desired reality include: Not using behavior activation and being overly critical. Benefited from taking look at current mental health state and obstacles for progress. Pt to continue IOP to improve distress tolerance, decreased utilization of unhealthy coping skills, and prevent decompensation.
--- NOTE | 2023-08-19 11:10 | BH.SGPN.GN ---
Behaviors/Verbalizations/Mental Status: [] Eye contact is good. Motor activity is appropriate. Appearance is casual. Speech is Appropriate. Mood is anxious and dysthymic. Affect is congruent. Thoughts are linear and logical. No evidence of psychosis. Client Response/Progress/Benefit: []Pt responded well to session, actively engaged throughout. Provided input during discussion on what potential internal barriers may be keeping them from reaching their desired reality. Pt was an active participant throughout the interactive activity in which group members problem solved the various internal barriers each pt reports struggling with. Pt identified wanting to work on personal barrier of lack of motivation and shared plans to remind himself of the benefits of following through with his using his skills as a means of overcoming this barrier. Pt appeared to benefit from brainstorming skills to overcome internal barriers, as well as support of the group. Will continue in IOP tx to prevent decompensation, promote skill application, and further encourage use of behavior activation skills. ? Narrative Note: []
--- NOTE | 2023-08-22 09:10 | BH.SGPN.GN ---
Behaviors/Verbalizations/Mental Status: [Patient was alert and oriented, appropriately dressed and groomed. Eye contact was poor, motor activity normal, speech within normal limits. Affect congruent, mood depressed. Thoughts linear, logical, no signs of hallucinations or delusions. Reviewed Patients symptom tracker and the patient reported themselves as moderate/severe in depressed mood, agitation/irritability/anger, moderate in self-harm urges, low in anxiety/panic attacks, and thoughts of suicide, Patient reports no symptoms of risk of suicide.] Client Response/Progress/Benefit: [ Patient was engaged and open to the discussion. Patient reported his mood to be ?angry?. Patient stated his first and second win was him doing his household maintenance, continuing to take his medicine, and practicing self-care. Patient said he was not sure about his stressor and does not want to talk about it. He reported that he does not know why he?s angry. Patient was respectful with other group members about their mental wins and stressors. Patient benefited from the discussion by listening to feedback to his peer?s stressors and mental health wins. Patient will continue with IOP treatment to help develop healthy skills, promote mood stability, and improve distress tolerance. ] Narrative Note: []
--- NOTE | 2023-08-22 10:15 | BH.SGPN.GN ---
Behaviors/Verbalizations/Mental Status: [] Eye contact is good. Motor activity is appropriate. Appearance is casual. Speech is Appropriate. Mood is anxious and depressed. Affect is congruent. Thoughts are linear and logical. No evidence of psychosis. Client Response/Progress/Benefit: [] Client was attentive during interactive group discussions AEB by writing notes, asking questions, and sharing when prompted. Attentive during psychoeducation on the six types of boundaries (physical, emotional, intellectual, sexual, time, and material). Along with peers, pt contributed to interactive discussion identifying common challenges to setting and maintaining healthy boundaries which included; fear of other's response, guilt, fear of losing relationships, and resentment for having to establish the boundary in the first place. Client along with peers identified the benefits to setting boundaries. Client shared he struggles with setting boundaries because he has had past negative experiences when establishing a boundary, as well as struggles with anger about having to communicate the boundary in the first place. Client benefited from increased awareness and insight on the importance/benefit to setting healthy boundaries. Will continue in IOP to improve daily functioning, increase healthy coping and self-care, and prevent decompensation. Narrative Note: []
--- NOTE | 2023-08-22 11:15 | BH.SGPN.GN ---
Behaviors/Verbalizations/Mental Status: []Pt alert and oriented, casually dressed and groomed. Eye contact good. Motor activity appropriate. Speech within normal limits. Affect congruent, mood irritable, anxious, depressed. Thoughts linear, logical, no signs of hallucinations or delusions. Client Response/Progress/Benefit: []Pt responded well to session, engaged and contributing. Pt attentive during psychoeducation on the different boundary styles. Pt reports connecting most with fluctuating between porous and rigid boundary setting styles depending on the person/situation. Pt shared this has impacted his ability to consistently get his needs met. Group brainstormed various strategies for improving ability to establish and maintain healthy boundaries. Reported he wants to work on using more assertive communication when trying to establish a boundary. Appeared to benefit from increasing insight to boundary setting styles and the impacts on mental health. Will continue IOP tx to prevent decompensation, improve ability to challenge thought distortions and improve self-esteem, and increase healthy coping. Narrative Note: []
--- NOTE | 2023-08-22 14:22 | BH.MDN_ITS ---
Multi-Disciplinary Note Note 45-min Individual: Time Started:: 12:05 Date: 08/22/23 Purpose of session/treatment goals addressed:: Utilized the session to review progress and current symptoms. Addressed treatment plans goals 1 and 2. Eye Contact:: Poor Motor Activity:: Restless (leg-tapping) Appearance:: Casual Speech:: Appropriate Mood:: Anxious and Depressed Affect:: Congruent Thoughts:: Linear, Logical and No evidence of hallucinations/delusions noted Staff Interventions:: thought challenging, CBT techniques, mindfulness skills, rapport building and taught coping skills Client Response:: Tearful and restless at the beginning of the session. Shared that he encountered a trauma trigger this AM. He briefly elaborated on the trigger and how it's related to his past trauma which is the most that he has discussed his trauma. Able to identify his current emotions however was upset with himself for feeling and thinking a certain way. Tearful and believing that his reaction was a failure. Processed and reviewed the event and his reacti ons with goal to utilize this event as a way to learn/grow. When reviewing the event therapist realized that pt had actually used coping skills such as opposite-action, thought reframing, thought challenging, and other calming skills. He was able to manage through the trigger without running away or leaving the program. He was also able to make it through IOP today and per staff report he was engaged in programing. Insight that he has unrealistic expectations for his mental health and doesn't give himself credit. When progress was pointed out he agreed and smiled. Risks/Concerns:: Daily symptom tracker notes 1/5 for suicidal ideations and 0/5 for intent. This is below baseline. Progress Toward Goals/Plan:: Progress noted. He is beginning to utilize skills with some improvement in mood/thinking. More comfortable to discuss trauma and is engaging more in IOP. Responds well to positive reinforcement. Increased behavior activation AEB completing household responsibilities. Despite progress his functioning remains poor. He isolated all weekend noting trauma triggers which often lead to unhealthy coping skills (cannabis, sleep to escape) which impact motivation, energy, and purpose. When this occurs he is non- compliant with medications. Needs prompts to utilize skills in session (breathing) and continues to be tearful when discussing most topics. Will continue in IOP to maintain safety, stabilize mood, increase healthy coping, and improve functioning to return to work. Time Stopped:: 12:45
== END 2023-08-23 23:59 ==
LOC: BHIOP 08:00
PROVIDERS: PCP Nurse Practitioner Family; Referring Provider Psychiatry & Neurology Psychiatry; Visit Provider Psychiatry & Neurology Psychiatry
DX: F43.10 Post-traumatic stress disorder, unspecified (principal); F33.2 Major depressive disorder, recurrent severe without psychotic features; F41.8 Other specified anxiety disorders; F12.91 Cannabis use, unspecified, in remission
CPT/HCPCS: S9480; 90832; 90834; 90853

== ENCOUNTER 2023-08-24 06:49 | Outpatient (RCR) | payer BC, SELFPAY ==
[2023-08-24 00:54] VITALS: BP 145/88; PULSE 93
--- NOTE | 2023-08-25 09:00 | BH.SGPN.GN ---
Behaviors/Verbalizations/Mental Status: [Patient was alert and oriented, appropriately dressed and groomed. Eye contact was intense, motor activity normal, unable to gauge speech. Affect congruent, mood anxious. Thoughts linear, logical, no signs of hallucinations or delusions. Reviewed Patients symptom tracker and the patient reports depressed mood, anxiety/panic attacks, aggravation/irritation/anger, self-harm urges, and risk/thoughts of suicide within patients normal base level.] Client Response/Progress/Benefit: [ Patient declined wanting to participate in group. Patient was respectful and sat quietly and seemingly listened to the other patients wins and stressors. Therapist will check in with the patient to gauge the patients thoughts and mood. If patient does not engage in discussion in the future, this could affect progress in the program. Patient will continue with IOP treatment to help develop healthy skills, promote mood stability, and improve distress tolerance. ] Narrative Note: []
--- NOTE | 2023-08-25 10:05 | BH.SGPN.GN ---
Behaviors/Verbalizations/Mental Status: [Patient was alert and oriented, casually dressed and groomed. Eye contact was limited, motor activity normal, speech within normal limits. Affect congruent, mood reserved. Thoughts linear, logical, no signs of hallucinations or delusions. ] Client Response/Progress/Benefit: [Patient was engaged and open to the discussion and appeared to respond well to the group. Patient used active listening and gave feedback during group discussion. Patient identified that two hours ago he felt his way of thinking was more in a negative perspective. The patient stated he wanted to challenge himself to view things in a more positive perspective instead. Patient appeared to benefit from increasing awareness of different perspectives and how they can affect mental health. Patient will continue IOP treatment to improve daily functioning, emotion management, and prevent decompensation.] Narrative Note: []
--- NOTE | 2023-08-25 11:15 | BH.SGPN.GN ---
Behaviors/Verbalizations/Mental Status: []Pt alert and oriented, casually dressed and groomed. Eye contact good. Motor activity appropriate. Speech within normal limits. Affect constricted, mood depressed. Thoughts linear, logical, no signs of hallucinations or delusions. Client Response/Progress/Benefit: []Pt was attentive and contributed to small group discussion. Pt completed strengths exploration worksheet, identifying humor as a personal strength. Pt able to acknowledge how these strengths are helping pt and can continue to help pt in mental health journey. Pt listened as group identified strategies that can help increase utilization of personal strengths and how to challenge one?s perspective in general. Pt stated he will ?probably not? work on challenging his perspective today, he will ?sleep I think.? Benefited from identifying personal strengths and strategies for enhancing use of identified strengths. Pt will continue IOP tx to prevent decompensation, gain healthy coping skills, and reduce isolation. ? Narrative Note: []
--- NOTE | 2023-08-29 09:36 | BH.MDN ---
Multi-Disciplinary Note Note 30-min Individual: Time Started:: 08:50 Date: 08/29/23 Purpose of session/treatment goals addressed:: Pt requested to speak with therapist this AM Eye Contact:: Fair Motor Activity:: Restless Appearance:: Casual Speech:: Appropriate Mood:: Anxious Affect:: Congruent Thoughts:: Linear, Logical and No evidence of hallucinations/delusions noted Staff Interventions:: completed risk assessment / safety planning Client Response:: Pt states I want to check myself into the hospital Shared that this weekend was very difficult and I just need to be in a structured place and take my medications. According to pt he spent the weekend with his parents. I took my cat and went over there. Insight that being alone was not helpful for his mental health and utilized strategies which are outlined on his safety plan. Future oriented reporting desire to get better and believing that inpatient would be best option currently. Discussion was had over the weekend with parents about voluntary admission and he was agreeable even packing his bag. Appears that he wanted to discuss with therapist this AM regarding options. Admits to increased suicidal ideations over the weekend. No trigger identified. Pt's baseline is fleeting SI throughout the day. Denied any intent or plan when asked, denied any preparatory acts, self-injurious behaviors, or self-interrupted attempts over the weekend. We discussed options and pt does not wish to go through the ER for evaluation due to prior negative experiences. At this moment he is denying any plan or intent, drove here this AM to discuss voluntary admission, and reports protective factors. I just need to to do this. Engaged with therapist and attempts to lighten mood with jokes. We reviewed free-standing psych units in the area and identified 2 options. Verbalized that he was OK to drive (he drove to [facility] this AM). Plan was made to drive back to his parents house and then have his mother drive him to [facility] for intake assessment for voluntary admission. Risks/Concerns:: refer above. Baseline fleeting SI daily. Reports increased frequency and duration of SI however denied plan or intent. Future-oriented. Protective factors (cat, parents, family). Verbalizes ability to keep himself safe. Utilized safety plan over the weekend, sought out support, and has hope that inpatient facility will be helpful in providing structure and accountability in order for him to take his medications. He was honest this AM, drove himself to IOP to discuss admission, and presents as motivated for higher level of care. No imminent threat identified and due to his behaviors followed through with his wish to avoid ER and drive directly to psych unit with his mother. Spoke with mother over the phone. Pt has arrived home and they are planning to drive to [facility]. She is in agreement with plan. Reports that he was more calm on Tuesday and today. No overt concerns for his safety. Verified that he had been over the house during the weekend and a discussion was had on voluntary admission. Progress Toward Goals/Plan:: Plan is for voluntary admission to higher level of care. Has not been to work in several weeks due to mental health. Significant isolation, limited healthy coping, and is non-compliant with medications. Increased frequency and intensity of SI over the weekend. Limited benefit from IOP/[facility] level of care. Pt informed that he is welcome to return after admission. Verbal permission to send over psychiatrist notes to [facility]. Time Stopped:: 09:20
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
== END 2023-08-30 06:53 ==
LOC: BHIOP 06:49
PROVIDERS: PCP Nurse Practitioner Family; Referring Provider Psychiatry & Neurology Psychiatry; Visit Provider Psychiatry & Neurology Psychiatry
DX: F43.10 Post-traumatic stress disorder, unspecified (principal); F33.2 Major depressive disorder, recurrent severe without psychotic features; F41.0 Panic disorder [episodic paroxysmal anxiety]; F40.11 Social phobia, generalized; F12.90 Cannabis use, unspecified, uncomplicated
CPT/HCPCS: S9480; 90853

== ENCOUNTER 2023-09-08 08:00 | Outpatient (RCR) | payer BC, SELFPAY ==
--- NOTE | 2023-09-08 08:05 | BH.COMM_ITS ---
Communication Note Communication with Client Communication Note: Met with patient to complete initial paperwork. Pt previously attending [facility] from 07/21/23-08/29/23 until he was admitted to higher level of care. Pt shared he was not completely honest with [facility] staff prior to his inpatient hospitalization. Completed C-SSRS. Pt stated on 08/26/23 he attempted suicide by hooking a hose to a tank of helium, putting the hose in a bag, and putting the trash bag over his head. Pt stated he started to feel the impact of the helium and he started to seize then the bag fell off. Pt reported he did not pass out and did not need medical attention. Pt did not notify anyone about his attempt until he was hospitalized. Pt stated on 08/27/23 he got in his bathtub and was planning to cut his wrists with the intent to bleed out. Pt reported he doesn't know why but he chose to not cut himself. Pt stated he came into [facility] on 08/29/23 and reported he needed to be hospitalized, but had not shared with staff at the time about his recent attempt. Pt stated while in the hospital his medication was changed and he feels that has been very helpful for his mood. Pt reported he is feeling less anxious and notes improved mood since being discharged from inpatient hospitalization. Pt denies any active suicidal thoughts since discharge. Notes ability to keep himself safe. Agreeable to bring in the helium tank to [facility] today. Denies access to any other lethal items. Protective factors (pets, family, reasons for living, work). Future-oriented ( work, moving back in with parents). Has a completed safety plan through his outpatient therapist. States he has a picture of it on his phone. Aware of crisis numbers. Has individual counseling appointment with his outpatient therapist today. Case discussed with Dr. Sosa with plan to admit to [facility] level of care with dx of Major Depressive Disorder, severe, recurrent F33.2.
--- NOTE | 2023-09-12 09:00 | BH.SGPN.GN ---
Behaviors/Verbalizations/Mental Status: [Patient was alert and oriented, appropriately dressed and groomed. Eye contact was good, motor activity normal, speech within normal limits. Affect congruent, mood content. Thoughts linear, logical, no signs of hallucinations or delusions. Reviewed Patients symptom tracker and the patient reports depressed mood, anxiety/panic attacks, aggravation/irritation/anger, self-harm urges, and risk/thoughts of suicide within patients normal base level.] Client Response/Progress/Benefit: [Patient was engaged and open to the discussion. Patient reported his mood to be ?anxious?.Patients first win is that he has been taking his medications better now that he has been using a pill calendar. Patient stated he kept taking his night medication that makes him tired during the day. Patients second win is that he has been feeling better and doing better mentally. The stressor was that he hasn?t been to group in a while so it?s causing more anxiety since he isn?t used to it right now. Patient was interactive and respectful with other group members about their mental wins and stressors. Patient benefited from the discussion by listening to feedback and giving input on his peer?s stressors and mental health wins. Patient will continue with IOP treatment to help develop healthy skills, promote mood stability, and improve distress tolerance. ] Narrative Note: []
--- NOTE | 2023-09-12 10:10 | BH.SGPN.GN ---
Behaviors/Verbalizations/Mental Status: []Pt alert and oriented, casually dressed and groomed. Eye contact good. Motor activity appropriate. Speech within normal limits. Affect congruent, mood euthymic. Thoughts linear, logical, no signs of hallucinations or delusions. Client Response/Progress/Benefit: []Pt receptive of session, actively engaged throughout AEB taking notes, providing some input, and listening to discussion. Appeared to connect with group topic of cognitive distortions and the impact of thought patterns on mental health, coping behaviors, and relationships. Pt reports utilizes distortions of jumping to conclusions, shoulds/musts, and personalization. Pt appeared to benefit from gaining insight on distorted thinking patterns and how this impacts overall mental health. Will continue IOP tx to challenge negative thinking, increase healthy coping skills, and prevent decompensation.
--- NOTE | 2023-09-12 11:15 | BH.SGPN.GN ---
Behaviors/Verbalizations/Mental Status: [] Eye contact is good. Motor activity is within normal limits. Appearance is casual. Speech is Appropriate. Mood is content, anxious. Affect is congruent. Thoughts are linear and logical. No evidence of psychosis. Client Response/Progress/Benefit: [] Pt was an active participant during group discussions and activity, providing more input and examples than in prior groups. Pt was placed in a smaller group and participated in quiz-show format in which small groups competed against each-other to answer questions based on identifying, challenging, and reframing cognitive distortions. Pt was engaged in the smaller group, participated in group interactions to brainstorm answers, and appeared to be comprehending cognitive distortions. Stated learning that ?it's important to look for signs of automatic negative thoughts to prevent them from continuing to grow?. Benefited from gaining further insight and awareness of cognitive distortions as well as practicing ways to reframe and challenge thoughts. Will continue in IOP to promote distress tolerance, stabilize mood, and maintain safety. Narrative Note: []
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
--- NOTE | 2023-09-12 13:00 | BH.MTP_ITS ---
Master Treatment Plan Patient Information Program Physician:: Madeleine Sosa Primary Therapist:: Kenji Le Psychiatric Diagnoses Psychiatric Diagnoses:: 1. PTSD 2. Panic disorder 3. Major depression, recurrent, severe without psychosis 4. Social anxiety disorder 5. Strong cluster B traits 6. THC use disorder Diagnosis Code(s):: F43.12, F41.0 Estimated LOS Estimated LOS (in weeks):: 5 Problem/Goal #1 Problem/Goal #1 Stated Goal:: Client will increase emotional regulation and reduce intensity and duration of panic attacks, avoidance, dissociative symptoms, and trauma triggers AEB reduction of overall DSM-5 outcome scales as well as anxiety and dissociation domains. Description of Barriers: Isolation, avoidance behaviors, limited benefit from traditional outpatient, reliance on unhealthy coping (cannabis, sleep) to manage emotions, low frustration tolerance, self-sabotaging behaviors, low self-esteem. Functional Impact: Missing work often, isolation, limited social outlets, daily panic attacks, mental health decompensation for several months. Goal Relevant Strengths/Supports: Intelligent, strong support system (parents) Objectives Objective #1: Stated Objective: Implement calming and coping strategies to reduce overall anxiety and to cope with the experience of panic. Interventions: Through individual and group counseling will teach client coping skills to improve distress tolerance and emotional regulation through mindfulness, thought challenging, and calming techniques to help client cope with anxiety in the moment. Discharge Criteria: Able to identify and consistently utilize 3-4 in the moment calming skills Target Date: 10/12/23 Review Date: 09/28/23 Objective #2: Stated Objective: Client will be able to explain common stress reactions and symptoms related to trauma and learn 2-3 coping skills to manage symptoms. Interventions: Through individual and group counseling will provide education on trauma and explain the impact trauma can have on functioning, emotions, and thoughts. Will help client explore personal symptoms and warning signs of stress and trauma. Discharge Criteria: Will be able to explain common stress reactions and trauma triggers. Will also be able to identify 2-3 strategies to manage trauma triggers. Target Date: 10/12/23 Review Date: 09/28/23 Problem/Goal #2 Problem/Goal #2 Stated Goal:: Client will increase mood stability and reduce depression, fleeting suicidal ideations, and hopelessness AEB reduction on DSM-5 depression and suicidal ideation domains. Description of Barriers: Isolation, avoidance behaviors, trauma triggers, dysregulation, limited benefit from traditional outpatient, reliance on unh ealthy coping (cannabis, sleep) to manage emotions, low frustration tolerance. Functional Impact: Missing work often, isolation, limited social outlets, significant automatic negative thoughts, low self-esteem, mental health decompensation for several months. Goal Relevant Strengths/Supports: intelligent, strong support (mother) Objectives Objective #1: Stated Objective: Client will create a behavior activation plan which will include a daily schedule with activities to increase mood and activity. Interventions: Through individual and group counseling will provide education on behavior activation and opposite action as well as help client identify activities, in line with increasing connection with others, decreasing isolation, and increasing purpose/social interaction. Discharge Criteria: Pt will have developed daily behavior activation goals and increased daily purpose. Target Date: 10/12/23 Review Date: 09/28/23 Objective #2: Stated Objective: Client will identify and replace 2-3 negative thinking patterns that reinforce depressive symptoms, self-hate, and negative self-talk. Interventions: Through individual and group counseling will help client identify distorted, negative beliefs about self and replace with more realistic, affirmative messages. Therapist will use CBT to help client increase insight to the connection between thoughts, emotions, and behaviors. Therapist will encourage client to practice thought challenging Discharge Criteria: Will be able to identify 2-3 negative thinking patterns and 2-3 CBT-based coping strategies to combat negative automatic thoughts. Target Date: 10/12/23 Review Date: 09/28/23
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
--- NOTE | 2023-09-14 09:05 | BH.SGPN.GN ---
Behaviors/Verbalizations/Mental Status: [] Eye contact is poor. Motor activity is restless. Appearance is casual. Speech is Appropriate. Mood is anxious. Affect is congruent. Thoughts are linear and logical. No evidence of psychosis. Reviewed daily check in sheet and pt reports 4/5 for suicidal ideations. Client Response/Progress/Benefit: [] Pt participated when prompted. Distracted. Stares at the floor for majority of the group. Daily symptom tracker notes 4/5 for depression and anxiety. Pt reports mental health wins as taking my meds and making it here today. He states haven't been making much progress isolating pretty hard. Reports that he is attempting to break a pattern however is struggling with motivation. Group provided support and encouragement which was beneficial. Attempted to reframe negative thinking and pointed out progress they have been able to identify. Was receptive to suggestions stating thank you. Limited progress noted as he reports recent decompensation since discharge from psych unit. Reverting back to unhealthy coping and isolation. Will contine in IOP to maintain safety, prevent decompensation/re-admission, and to improve functioning. Narrative Note: []
--- NOTE | 2023-09-14 10:15 | BH.SGPN.GN ---
Behaviors/Verbalizations/Mental Status: [Patient was alert and oriented, casually dressed and groomed. Eye contact was good, motor activity normal, speech within normal limits. Affect congruent, mood depressed. Thoughts linear, logical, no signs of hallucinations or delusions. ] Client Response/Progress/Benefit: [Patient was open and participated in group discussions. Attentive during psychoeducation Goal Setting. Participated during the activity. Interactive group discussion on Goal Setting in which group verbalized how to create the best and most effective goal using the SMART Goal model for their lives. Patient stated showing up to IOP in general helps get the goal of improved mood stability and making some progress because when you don?t have goals you can lose progress. Patient benefited from increased awareness of stages of changes and how emotions impact change. Will continue in IOP to promote gains, further combat distorted thinking, and improve daily functioning.] Narrative Note: []
--- NOTE | 2023-09-14 10:30 | BH.NA_ITS ---
Physical Data Vital Signs Pulse Rate: 75 Blood Pressure: 134/85 Height/Weight Height: 1.78 m Weight:: 108.862 kg Weight in Pounds: 240.0 lbs Nutritional History Appetite Nutritional Instructions: Describe your appetite:: Fair Additional nutritional information:: Client states his appetite and weight fluctuate a lot. Client states since starting the IOP a month ago, he lost about 10-15lbs but has gained about 10lbs back. Functional Assessment Sleep Pattern Describe any problems with sleeping: Client states he sleeps about 6-7 hours per night. Sensory/Communication Assess Communication Problems Do you have difficulty understanding what people are saying?: No Medical Problems/History Cardiac Conditions Cardiovascular: Other (See comments) (history of Kawasaki disease) Pain Assessment Do you have acute or chronic pain?: No Family History Family History (Updated 03/17/23 @ 14:44 by Jennifer Ng) Grandmother Arthritis Uncle Colon cancer Mother Diabetes Grandfather Heart disease Additional History Additional comments:: Client states he plans on getting tested for ADHD/autism soon. Surgical History Surgical History Have you had any surgeries? 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 Client denies tobacco use. Client states he has significantly decreased his THC use, stating he uses about 20mg per day. Client states he drinks about 100-200mg of caffeine per day in coffee and occasionally has energy drinks. Mental Status Summary Mental Status Significant Findings/Observations on Appearance and Mood:: Client is alert and oriented x 4. Client is casually groomed. Client is cooperative with assessment. Client makes fair eye contact. Client's voice has normal rate and volume. Client has appropriate affect, but is somewhat restricted when he mentions he is trying to start dealing with past trauma. Client makes logical associations and has normal processing. Client denies delusions/hallucinations. Client states he has some passive SI, stating he feels I wish I wasn't here but denies active suicidal ideations or plan. Client denies HI. Past Psychiatric History MH Treatment Hx Past Psychiatric Medications:: Wellbutrin, Zoloft, Latuda, Trazodone Age of first mental health symptoms: Client states he was first on medication for his mental health around age 19-20. Describe (age, circumstance, etc) any past hospitalizations: Client was hospitalized in 2016 after a suicide attempt. Client was recently hospitalized at [facility] 08/29-09/06/23 after he admitted he had had a suicide attempt on 08/26 and 08/27 to his [facility] therapist. Current providers for mental health treatment (counselor, psychiatrist, telephonic case manager, etc.): [facility] for psychiatry, Kolby fuentes [facility] for therapy Fall Risk Assessment Age Age: Less than 60 Mental Status Mental Status: Willing & able to ask for assistance when needed Physical Status Physical Status: No problems Impairments Impairments: None Elimination Elimination: Continent AND independent Gait or Balance Gait or Balance: Walks independently Hx of Falls History of falls in the past 6 months: No known history Medications/Substances Psychotropics:: Antidepressants, Antipsychotics and Antihistamines (e.g. Benadryl) Medications/substances used within the past 24 hours or ordered to administer: 3 or more of the medications/substances listed above Total Score Total Points:: 2 RN Summary of Impressions Impressions Recommendations Impressions: Psychiatric Issues: 1. Major depression, recurrent, severe without psychosis 2. PTSD 3. Generalized anxiety disorder 4. Panic disorder 5. Strong cluster B traits 6. THC use disorder 7. Primary support and work issues Level of Care How do the client's current symptoms and functional deficits support need for this level of care?: Client was in [facility] from 08/08-08/29/23 but was hospitalized on 08/29/23 and discharged. Client was hospitalized at [facility] from 08/29- 09/03/14 after he admitted to his [facility] therapist that he had attempted suicide on 08/26 by use of helium, but the bag came off his head and he did not try again and on 08/27, he had a plan to get in the tub and cut himself, but aborted this plan. Client states he does have passive thoughts of SI, stating he feels like I wish I weren't here but denies active SI or plan. Client states he does feel more hopeful at this time, and states he does feel like he is ready to start talking about some of his past trauma. Client also admits that talking about this trauma is very stressing for him. [facility] will promote gains and prevent further decompensation while providing social support and skills training.
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
--- NOTE | 2023-09-14 11:00 | BH.DR.ITP ---
Initial Treatment Plan Patient Information Visit Information: ADMISSION DATE: EXPECTED LOS: 4-6 weeks Problems/Symptoms Problem #1:: Anxiety Symptom:: Worry, rumination, panic, nightmares, flashbacks, reexperiencing, avoidance Problem #2:: Depression Symptom:: Sadness, hopelessness, guilt, passive thoughts of , decreased concentration, anhedonia, passive suicidal ideation
--- NOTE | 2023-09-14 11:10 | BH.SGPN.GN ---
Behaviors/Verbalizations/Mental Status: []Pt alert and oriented, casually dressed, appropriately groomed. Eye contact fair. Motor activity appropriate. Speech within normal limits, mostly quiet. Affect congruent, mood anxious. Thoughts linear, logical, no signs of hallucinations or delusions. Client Response/Progress/Benefit: [] Pt was engaged during discussion and willing to complete the worksheet challenging them to develop a personal SMART goal. Pt chose the goal of starting a journal and agenda. Pt stated this will benefit pt by increases his productivity. Pt identified barriers which included maintaining goal, starting goal, and when to complete goal. Identified solutions such as using a visual aid, setting it as schedule, and putting the journal where can see it. Pt receptive to identifying solutions for these barriers and willing to begin working on this goal. Benefited from this group by developing a short-term SMART goal related to mental health. Will continue IOP tx to continue use of healthy coping skills, challenge distortions, and prevent decompensation.
[2023-09-14 11:37] VITALS: BP 134/85; PULSE 75
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
--- NOTE | 2023-09-16 17:52 | BH.MDN_ITS ---
Multi-Disciplinary Note Note 30-min Individual: Time Started:: 11:05 Date: 09/16/23 Purpose of session/treatment goals addressed:: Pt had shown up late to group today and reported he wasn't doing mentally well. Pt's symptom tracker reported a 4 for suicidal thoughts and a 2 for suicidal intent. This is lower than pt's baseline, but due to him reporting not doing well this therapist checked in with client to assess suicidal risk and develop plan. Eye Contact:: Fair Motor Activity:: Restless Appearance:: Casual Speech:: Appropriate Mood:: Anxious and Depressed Affect:: Congruent Thoughts:: Linear, Logical and No evidence of hallucinations/delusions noted Staff Interventions:: thought challenging, CBT techniques, strengths perspective and completed risk assessment / safety planning Client Response:: Client stated he has been struggling since yesterday because of the holiday. Client reported he went to his [employer] house for Thanksgiving and he had to be around his sister. Client stated this was trauma triggering for him. Client stated he didn't tell his parents it wouldn't be a good idea for him to be around his family because he didn't want to cause issues. Client reported he also sometimes doubts himself because he reported his childhood memories are often invalidated by others. Client reported he started having bad thoughts last night, but was able to work through the thoughts. Client elaborated he was having suicidal thoughts and had a passing thought about using his parents gun. Client reported he does have chronic daily thoughts of suicide. Client stated he does not have intention to kill himself today. Client agreed it would be a good idea for therapist to have his parents move their guns to a new location and have them locked up. Client stated he also thinks it would be a good idea to stay with his parents for the weekend so he has consistent support. Client reports he feels able to maintain safety. Client stated he has a safety plan saved on his phone and is agreeable to call the national or local crisis line if his suicidal thoughts worsen. Risks/Concerns:: See note above for more information. Therapist spoke to client's mom and she agreed to secure the firearms in their home. Therapist also informed client's mom that he will be staying at [facility] for the weekend. Progress Toward Goals/Plan:: Progress limited. Client continues to struggle with chronic suicidal thoughts. Client struggles with distress tolerance. He reports he has returned to using marijuana, but did report he is using less in the last couple of days. Client reports feeling able to keep himself self safe. Client reports his parents are a support for him. Client to continue IOP to improve distress tolerance, increase healthy coping skills, challenge distortions, and prevent decompensation. Time Stopped:: 11:35
--- NOTE | 2023-09-19 09:00 | BH.SGPN.GN ---
Behaviors/Verbalizations/Mental Status: [Patient was alert and oriented, appropriately dressed and groomed. Eye contact was good, motor activity normal, speech within normal limits. Affect congruent, mood content. Thoughts linear, logical, no signs of hallucinations or delusions. Reviewed Patients symptom tracker and the patient reports depressed mood, anxiety/panic attacks, aggravation/irritation/anger, self-harm urges, and risk/thoughts of suicide within patients normal base level.] Client Response/Progress/Benefit: [Patient was engaged and open to the discussion. Patient reported his mood to be ?nervous?. Patients first win is that he is here in group today despite his low mood. His second win he stated feels like a ?happen stance? but that he has reduce his marijuana usage. The group discussed why this is a win because of his mindset and his overall goal of wanting to only smoke on the weekends. 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 Patient was interactive and respectful with other group members about their mental wins and stressors. Patient benefited from the discussion by listening to feedback and giving input on his peer?s stressors and mental health wins. Patient will continue with IOP treatment to help develop healthy skills, promote mood stability, and improve distress tolerance.] Narrative Note: []
--- NOTE | 2023-09-19 10:15 | BH.SGPN.GN ---
Behaviors/Verbalizations/Mental Status: [] Eye contact is fair. Motor activity is appropriate. Appearance is casual. Speech is Appropriate. Mood is euthymic. Affect is constricted. Thoughts are linear and logical. No evidence of psychosis. Client Response/Progress/Benefit: []Pt engaged participant AEB listening to others, engaging in activity, and providing feedback at times. Attentive during psychoeducation and provided insight into obstacles in the way of mental wellness. Pt shared with group current mental health reality and desired mental health reality. Stated being social at IOP as one step he is currently making to get closer to desired reality. Identified barriers to desired reality include: avoidance, negative thoughts, poor budgeting, low motivation, and low energy. Benefited from taking look at current mental health state and obstacles for progress. Pt to continue IOP to improve distress tolerance, challenge negative thoughts, and prevent decompensation.
--- NOTE | 2023-09-19 11:20 | BH.SGPN.GN ---
Behaviors/Verbalizations/Mental Status: []Eye contact is fair. Motor activity is appropriate. Appearance is casual. Speech is Appropriate. Mood is dysthymic. Affect is constricted. Thoughts are linear and logical. No evidence of psychosis. Client Response/Progress/Benefit: [] Pt responded well to session, mostly engaged throughout though at times appeared distracted. Provided input when prompted during discussion on what potential internal barriers may be keeping them from reaching their desired reality. Pt identified wanting to work on personal barrier of poor spending habits and finances by creating a new budget. Pt shared this would also reduce stress. Pt appeared to benefit from brainstorming skills to overcome internal barriers, as well as support of the group. Will continue in IOP tx to prevent decompensation, promote skill application, and further encourage use of behavior activation skills. ? Narrative Note: []
--- NOTE | 2023-09-19 12:10 | BH.MDN ---
Multi-Disciplinary Note Note 45-min Individual: Time Started:: 12:15 Date: 09/19/23 Purpose of session/treatment goals addressed:: Risk Assessment, treatment planning, and to review current symptoms/progress in IOP. Eye Contact:: Good Motor Activity:: Appropriate Appearance:: Casual Speech:: Appropriate Mood:: Depressed Affect:: Congruent Thoughts:: Linear, Logical and No evidence of hallucinations/delusions noted Staff Interventions:: psychoeducation on: (Affirmation for childhood trauma), treatment planning and completed risk assessment / safety planning Client Response:: Pt followed through with plan set forth on 09/16/23 (refer to note). He spent the weekend with his parents and visited with family (not sister who is trauma trigger). He reports that he had great conversations with his cousins and his parents. Spent most of the day yesterday talking with his parents. Overall improved mood due in large part to limited isolation. Daily symptom tracker today notes 5/10 for suicidal thoughts ([facility] ideation scale). Used the session to begin to address his trauma triggers as well as aspects of his trauma. He did well talking about this and did not appear in distress which shows significant improvement from his first week in IOP. Introduced the role of affirmations to add to mindfulness and distraction skills for trauma triggers. Insight noted as he is stating that at times he self-harms through actions giving example of living at his sister's house (big trauma trigger) and spending time with her on Thanksgiving (big trauma trigger). He rationalized these decisions in the past however agrees that it was not smart. In the process of moving his stuff out of the house and back in with parents. He remains at his parents house reporting it helps being there and I'm better able to relax and complete self-care. Also appears to be more accountability. Risks/Concerns:: Pt reports suicidal thoughts have gotten better since 09/16/23. Following through with safety plan. Continuing to reduce access to lethal means by communicating with family the need to lock up guns and they followed through. Long-standing fleeting SI. Denies plan or intent. Future-oriented. Protective Factors. Continues to stay with parents. Progress Toward Goals/Plan:: Pt's progress has been erratic in [facility] due in large part to inconsistent attendance, non-compliance with medications, self-sabotaging behaviors, limited follow through on coping skills, no follow through on homework assignments, continued use of cannabis to cope, and limited engagement in groups. He did not read or completed questionnaire given at last session. Did not complete behavioral activation goals. Despite this staff have noticed considerable improvement in his ability to discuss and talk about trauma. During his first week he become irritable, agitated, and extremely restless at the mere word 'trauma' however today can discuss with limited distress. Is not stable enough to engage in EMDR per outpatient therapist however a discussion was had with patient about [facility]'s Trauma IOP which is a program geared specifically to trauma survivors to provide support and trauma specific skills. Since pt's primary concern is trauma and trauma triggers we discussed referral to this program. He was given referral with plan to set up assessment and he is agreeable. Plan to continue in this IOP to maintain safety, increase healthy coping, and improve functioning. Time Stopped:: 01:00
--- NOTE | 2023-09-21 09:05 | BH.SGPN.GN ---
Behaviors/Verbalizations/Mental Status: [] Eye contact is good. Motor activity is appropriate. Appearance is casual. Speech is Appropriate. Mood is anxious. Affect is congruent. Thoughts are linear and logical. No evidence of psychosis. Reviewed daily check in sheet and pt reports 3/10 for SI, which is lowest it has been in the past week. Client Response/Progress/Benefit: [] Pt participated at times during the group discussion. Attentive. Pt volunteered to share first. Emotion for today is hopeful. Mental health win was that I went to work yesterday and had a productive day. He has been struggling to go into work due to anxiety. It was really awesome. Another mental health win was I'm taking my medications as prescribed. Presently he is hopeful and notes there are things I'm looking forward too. Insight that behavior activation and opposite action can be beneficial skills for him. Progress noted due to decrease in suicidal ideation scores, increased hope, and improved mood. Benefited from group support, encouragement, and feedback. Will continue in IOP to maintain safety, prevent decompensation/re-admission to psych unit, and to improve functioning. Narrative Note: []
--- NOTE | 2023-09-21 10:10 | BH.SGPN.GN ---
Behaviors/Verbalizations/Mental Status: []Eye contact is fair. Motor activity is appropriate. Appearance is casual. Speech is Appropriate. Mood is depressed. Affect is congruent. Thoughts are linear and logical. No evidence of psychosis. Client Response/Progress/Benefit: []Pt was an active participant in group discussions AEB listening attentively to others and providing feedback at times. Participated in and was engaged during experiential activity. Able to relate activity to group topic of FOF. Engaged during interactive discussion on what failure means to the group in which peers identified and defined failure. Group was able to identify impact of fear of failure on mental health. Attentive during interactive discussion on the role that FOF plays in mental wellness, depression, anxiety, and growth. Pt reported fear of failure has kept pt from being social and engaging with others. Benefited from increased awareness of how the role that FOF plays in mental health and decision-making. Will continue in IOP to prevent decompensation, gain healthy coping skills, and reduce avoidance.? Narrative Note: []
--- NOTE | 2023-09-21 11:10 | BH.SGPN.GN ---
Behaviors/Verbalizations/Mental Status: []Pt alert and oriented, casually dressed and groomed. Eye contact good. Motor activity appropriate. Speech within normal limits. Affect congruent, mood euthymic and anxious. Thoughts linear, logical, no signs of hallucinations or delusions. Client Response/Progress/Benefit: []Pt responded well to session, engaged in the experiential activity and attentive throughout group processing. Pt completed fear of failure worksheet and was able to identify thoughts and behaviors that reinforce personal fear of failure including: avoiding talking to people and negative self-talk.?Pt participated in group discussion regarding strategies to overcome fear of failure. Identified wanting to work on?using opposite action more often to reduce anxiety. Appeared to benefit from increased knowledge of strategies to combat fear of failure and gaining self-awareness. Pt will continue IOP tx to prevent decompensation, reduce isolation, and learn healthy coping skills to manage chronic SI.? Narrative Note: []
--- NOTE | 2023-09-21 11:30 | PCM.BH.PN ---
Progress Note Progress Note: History of Present Illness/Interim History: The patient is a 28-year-old single male with a history of PTSD, panic disorder, depression and anxiety who is seen in follow-up at the [facility] behavioral health IOP. I last saw the patient 1 week ago and at that time no medication changes were made. As his medications had been changed when he was admitted recently to [facility]. The patient states that he feels that his depression and anxiety have improved and he feels much safer now. He has moved back to in with his parents and feels this also has lessened his anxiety and PTSD symptoms and has lessened his frequency of being triggered. The patient denies any self-harm since August 07, 2023. He still has some sadness and he still has occasional hopelessness but much less often than before. He denies passive thoughts of and passive suicidal ideation which she last had 1 week ago. He denies active suicidal ideation, plan for suicide, homicidal ideation, hallucinations, delusions. He continues to worry excessively and ruminates negatively at times. Current Psychiatric Medications: [] Medications are unchanged from last visit. Mental Status Examination: [] The patient is a 28-year-old male who appears normal for stated age and is casually dressed and groomed with good hygiene. He is cooperative during the interview and has no psychomotor agitation or retardation. There is no evidence of trauma. Eye contact is good. Speech is normal rate and rhythm and fluent with no pressure. Mood is anxious. Affect is constricted. Thought process is goal-directed and organized. Thought content: There is no evidence of passive thoughts of , suicidal ideation, homicidal ideation, plan for suicide, hallucinations or delusions. Patient is more hopeful for the future. Reality testing is intact. Judgment is intact. Insight Limited but improving. Impulsivity is high. Diagnoses: [] 1. Major depression, recurrent, severe without psychosis (improving) 2. PTSD 3. Generalized anxiety disorder 4. Panic disorder 5. Strong cluster B traits 6. THC use disorder 7. Primary support and work issues Plan: [] The patient will continue the IOP at [facility] as the structure, support, education and group therapy will hopefully prevent worsening of the patient's symptoms that might require rehospitalization. He felt safe during the interview and if it anytime he does not feel safe he will let us know or go to the emergency room. No medication changes were made today. The patient may be referred to a trauma IOP when this program ends. The patient will continue to follow-up with his outpatient providers and I will see the patient in follow-up while in the IOP program. Refills were given on all of his psych medications today.
== END 2023-09-22 23:59 ==
LOC: BHIOP 08:00
PROVIDERS: PCP Nurse Practitioner Family; Referring Provider Psychiatry & Neurology Psychiatry; Visit Provider Psychiatry & Neurology Psychiatry
DX: F33.2 Major depressive disorder, recurrent severe without psychotic features (principal); F43.10 Post-traumatic stress disorder, unspecified; F41.0 Panic disorder [episodic paroxysmal anxiety]; F41.1 Generalized anxiety disorder; F12.90 Cannabis use, unspecified, uncomplicated
CPT/HCPCS: S9480; 90832; 90834; 90853

== ENCOUNTER 2023-09-23 08:55 | Outpatient (RCR) | payer BC, SELFPAY ==
[2023-09-23 00:26] VITALS: BP 134/85; PULSE 75
--- NOTE | 2023-09-23 10:10 | BH.SGPN.GN ---
Behaviors/Verbalizations/Mental Status: [] Eye contact is fair. Motor activity is appropriate. Appearance is casual. Speech is Appropriate. Mood is euthymic. Affect is congruent. Thoughts are linear and logical. No evidence of psychosis. Client Response/Progress/Benefit: [] Client connected with topic of Anxiety and participated throughout, providing input and taking notes. Attentive during psychoeducation on different anxiety disorders and participated throughout interactive discussion defining anxiety and identifying cognitive and physiological symptoms of anxiety. Group discussed how anxiety can prevent them from trying new things. Common physical and cognitive symptoms identified by group included: ?what if thoughts?, ?fear of failure?, negative self-talk, feeling nauseous, shaky, and temperature change. Client identified drug use and isolation as their safety behaviors. Benefited from increased awareness and insight on anxiety and its impact. Plan is to continue in IOP to improve mood stabilization, increase follow through with goals outside treatment environemnt, and prevent decompensation.
--- NOTE | 2023-09-23 11:10 | BH.SGPN.GN ---
Behaviors/Verbalizations/Mental Status: []Client alert and oriented, casually dressed and groomed. Eye contact good. Motor activity appropriate. Speech within normal limits. Affect congruent, mood euthymic. Thoughts linear, logical, no signs of hallucinations or delusions. Client Response/Progress/Benefit: []Client was an active participant AEB pt providing input and listening attentively to peers, appearing more engaged than in prior sessions. Attentive during psychoeducation on mindfulness coping skills and their impact on reducing anxiety and improving overall mental health wellness. Group was able to identify self-soothing and mind-based coping skills which included: 5-senses, meditation, deep breathing, journaling, and body scan. Client would like to work on calming skill of prayer and body scan. Appeared to benefit from increasing repertoire of anxiety reduction skills. Client will continue in IOP tx to improve mood stability, further reduce depression, and promote healthy skill application. Narrative Note: []
--- NOTE | 2023-09-23 12:29 | BH.COMM ---
Communication Note Communication with Client Communication Note: Checked-in with patient briefly before he left IOP today. For the past two IOP days his SI has been the lowest since entering [facility] noting significant improvement. According to SL ideation scale he is at 3/10 (increased emotional intensity, capable of self-soothing). Reported stress and agitation however denied hopelessness, self-hate, or risk of suicide. No reports of active SI, plan, or intent. Anxious at times this AM however was able to calm self. He reports plans this weekend to finish moving into [employer]. Smiling and talking with peers after group. Remains at his [employer], attended work on 09/21/23 noting it was awesome, and is more engaged in IOP. Continued challenges when encounters a trauma trigger however improving in his ability to self-calm.
--- NOTE | 2023-09-26 09:05 | BH.SGPN.GN ---
Behaviors/Verbalizations/Mental Status: [] Pt alert and oriented, Casually dressed and groomed. Eye contact fair, often looking down. Motor activity appropriate, at times restless. Speech within normal limits. Affect constricted, mood anxious and dysthymic. Thoughts linear, logical, no signs of hallucinations or delusions. Reviewed pt?s symptom tracker, pt reports no suicidal ideation or intention. Client Response/Progress/Benefit: [] Client responded well to session as evidenced by listening attentively to others and providing feedback when prompted. Per pt he is proud of himself for continuing with IOP tx as this has been a very difficult experience addressing his mental health sx. Noted that although it has been difficult, he is glad he is doing it. Pt did well to remain attentive throughout the remainder of the session and appeared to benefit from the support of the group environment. However, declined to share anything else with the group. Narrative Note: []
--- NOTE | 2023-09-26 10:15 | BH.SGPN.GN ---
Behaviors/Verbalizations/Mental Status: [Patient was alert and oriented, casually dressed and groomed. Eye contact was good, motor activity normal, speech within normal limits. Affect congruent, mood content. Thoughts linear, logical, no signs of hallucinations or delusions. ] Client Response/Progress/Benefit: [Patient was engaged and open to the discussion and appeared to respond well to the group. Patient used active listening and gave feedback during group discussion. Patient shared that he doesn?t know why he continues to use negative coping skills. Patient appeared to benefit from increasing awareness of different perspectives and how they can affect mental health. Patient will continue IOP treatment to improve daily functioning, emotion management, and prevent decompensation.] Narrative Note: []
--- NOTE | 2023-09-26 11:05 | BH.SGPN.GN ---
Behaviors/Verbalizations/Mental Status: []Pt alert and oriented, disheveled in appearance. Eye contact fair. Motor activity appropriate. Speech within normal limits. Affect constricted, mood dysthymic. Thoughts linear, logical, no signs of hallucinations or delusions Client Response/Progress/Benefit: [] Pt passive participant AEB not providing input throughout group discussion. Pt did appear to be taking notes and nodded his head several times after others shared their thoughts. Group discussed the different categories of coping skills which included distraction, emotional release, grounding, self-love, and thought challenging.? Pt participated in creating a coping skills ?menu? from the five categories of coping skills. Pt did not share his coping menu with group. Appeared to benefit from increasing repertoire of healthy coping skills. Pt was less engaged in group compared to previous group sessions. Will continue IOP tx to promote mood stability, improve distress tolerance skills, and prevent decompensation.
--- NOTE | 2023-09-26 11:50 | BH.MDN_ITS ---
Multi-Disciplinary Note Note 30-min Individual: Time Started:: 11:50 Date: 09/26/23 Purpose of session/treatment goals addressed:: Disengaged from groups this AM appearing lethargic. Reports issues with medications. Eye Contact:: Fair Motor Activity:: Appropriate Appearance:: Disheveled Speech:: Appropriate Mood:: Depressed Affect:: Flat Thoughts:: Linear, Logical and No evidence of hallucinations/delusions noted Staff Interventions:: other (primary concern was clarifying medication issues and reporting them to program psychiatrist. ) Client Response:: Pt presents today reporting I think I need refills on my medications. He hands therapist an empty bottle of Gabapentin and states I think there are others too. He does not recall the medications he needs refilled. Therapist listed off the medications that he is currently taking. After talking further it would appear that [facility] had only given him a two week supply of medications with no refills. He remains unclear on the medications needed and requests that this therapist call his mother for clarification. States I'm just out of it as he has not been on the medications since 09/23/23 (he did not disclose this to staff when present on 09/23/23). He also did not disclose needing refill when meeting with program psychiatrist on 09/21/23. Reports being very tired with difficulty focusing/concentrating. I'm a little off but things are good. Slept for a majority of the weekend and reports increased anxiety and depression. Its probably because I'm off my meds. Fearful that his anxiety will worsen. Despite medication issues he presents as future-oriented and optimistic. He reports date night tomorrow with someone he recently met. This was the first he mentioned this to therapist. Smiling and discussing his plans. Risks/Concerns:: Denies active SI, plan, or intent. Reviewed his symptom tracker. Currently / for suicidal thoughts which is the lowest he has been since entering [facility]. Progress Toward Goals/Plan:: Spoke with pt's mother after the session and she provided list of medications that need refilled (Zyprexa, Atarax, Gabapentin, Naltrexone). Therapist informed program psychiatrist and nurse and refills were called in. Mother states that pt knew he was out of medications on 09/23/23 and is unsure why he didn't communicate this to [facility] staff. She feels that sometime he doesn't like to bother people with his issues. Limited progress noted. Mood is situational Participates in actions or decisions which can be perceived as self-sabotaging (not telling staff about medications, continuing to live in trauma triggering environment, etc.) however behaviors could also be perception of bothering others with issues or beliefs that he is over-reacting. Erratic progress and engagement in IOP. Has not completed any homework assignments (mistaken beliefs questionnaire, making appointment with trauma IOP, establishing with outpatient psychiatrist, utilizing trauma affirmations, completing behavior activation goals, etc.). Despite limited engagement and follow-through he presents as less anxious, restless, irritable, and depressed. Also reports reduction in intensity, severity, and and duration on fleeting SI. Time Stopped:: 12:10
--- NOTE | 2023-09-28 10:10 | BH.SGPN.GN ---
Behaviors/Verbalizations/Mental Status: [] Eye contact is poor. Motor activity is appropriate. Appearance is casual. Speech is Appropriate. Mood is depressed. Affect is flat. Thoughts are linear and logical. No evidence of psychosis. Client Response/Progress/Benefit: [] Limited participation in group discussions. Attentive. Attentive during interactive discussion on what is meant by Taking Action and what is holding them back from taking action on their mental health. Participated with peers during small group discussions on the impact of negative thoughts, depression, anxiety, guilt, low self-esteem, and anger on an individual's functioning. Areas that patient wished to gain more control over include; isolation, substance misuse, and guilt. Believes that if they can gain more control over those areas it would lead to time better spent. Benefited from increased awareness of obstacles to mental wellness. Will continue in IOP to prevent decompensation/re-admission to psych unit, increase healthy coping, maintain safety, and improve functioning. Narrative Note: []
--- NOTE | 2023-09-28 11:30 | BH.MDN_ITS ---
Multi-Disciplinary Note Note 45-min Individual: Time Started:: 11:30 Date: 09/28/23 Purpose of session/treatment goals addressed:: Reviewed progress and current symptoms. Eye Contact:: Fair Motor Activity:: Appropriate Appearance:: Casual Speech:: Appropriate Mood:: Anxious and Depressed Affect:: Congruent Thoughts:: Linear, Logical and No evidence of hallucinations/delusions noted Staff Interventions:: CBT techniques, goal setting and taught coping skills Client Response:: Pt states Everyone keeps asking if I'm OK and I am. States that he tends to look down a lot and I have resting bitch face. I'm just really tired. Reports that he continues to struggle with focus and concentration which may be due to increased cannabis use and being off certain medications since 09/22/23. Nurse called in medications to pharmacy on 09/26/23 however for unknown reasons medications were never filled by the pharmacy (pt nor parents called to let us know they were not available). Spoke with program nurse and psychiatrist about his and it was cleared up and his medications should be available today. He agrees to call if they are not available. Increased cannabis use stating that he vapes about once every 30 minutes. After use initially he feels relaxed and happy describing a soothing sensation. Trigger to use is anxiety and irritability. Insight that increased use in not helping with motivation and energy leading to being more tired. Makes jokes throughout the sessions stating he is going to bet blasted or really high to change the litter box. Utilizes cannabis to improve or make tasks more enjoyable. I have nothing to do tonight so I'm fearful I'm just going to get wasted. We worked on developing a plan to reduce use and increase activities, distraction, and healthy coping skills. Barrier is immediate gratification of cannabis use. My mom even mentioned I use too much. He is attentive and has insight this is unhealthy coping skills however relies on it heavily. We worked together to identify other coping skills (which we have done in the past) and encouraged him to use these to reduce frequency of use. He has been living with parents full-time which has decreased isolation. He reports talking often with them which has helped his overall depression. Risks/Concerns:: Pt denies active suicidal ideations, plan, or intent. Verbalizes ability to keep self safe. Agreeable to continue with safety plan he had developed in the past. Access to lethal means was reduced (guns locked up by parents). Future-oriented (work, new romantic relationship). Protective factors are his parents and pet. Progress Toward Goals/Plan:: Regression noted. Mixture of increased cannabis use and not being on medications for past 6 days. Decreased functioning, energy, and motivation due to always being tired. We developed a plan for the next few days to distract, practice healthy coping skills, utilize behavior activation, and utilize trauma affirmations. Also asked pt to write down negative depressive or anxious thoughts which impact him the most so we could challenge in session. He states that groups and education in IOP is helpi ng however is frustrated he is not further along. Normalized these feelings and challenged him to take more active role in his treatment (i.e. practicing skills, following through with homework, engaging in group, etc.). Medications were again sent to the pharmacy this AM and he agrees to call if there is an issue. He has individual counseling appointment tomorrow with outpatient provider. He has not followed up with making appointment for aftercare through [facility]. Has not followed up with contact [facility]. I will do that today. Will continue in IOP to maintain safety, prevent decompensation, increase healthy coping, and improve functioning. Time Stopped:: 12:15
--- NOTE | 2023-09-28 14:51 | BH.TPR ---
Treatment Plan Review Demographics Date of Admission:: 09/09/23 Date of Treatment Plan Review:: 09/28/23 Admitting Diagnoses:: Major depression, recurrent, severe without psychosis PTSD Generalized anxiety disorder Panic disorder THC use disorder Current Diagnoses:: Major depression, recurrent, severe without psychosis PTSD Generalized anxiety disorder Panic disorder THC use disorder Patient Status Patient's Response to Treatment:: Sporadic attendance. Limited engagement in groups. Mood is erratic at times. Often dismisses peer feedback and suggestions AEB once commenting to peer that her suggestion is stupid. Regression noted in the past week. Mixture of increased cannabis use and not being on medications for past 6 days. Decreased functioning, energy, and motivation due to always being tired. Admits that he enjoys being lethargic and tired b/d its an easy way to just escape. He states that groups and education in IOP is helping however is frustrated he is not further along. Struggling to practice or incorporate IOP education and healthy coping strategies instead relying on sleep/cannabis to manage stress. Has not taken an active role in his treatment (i.e. practicing skills, following through with homework, engaging in group, etc.). He has not followed up with making appointment for aftercare through [facility]. Has not followed up with contacting [facility]. He had 10 days of progress and some stability after psychiatric unit in which he was engaged, practicing skills, and not utilizing THC to cope. His progress during and immediately after psych unit most likely due to no access to THC and being forced to utilize skills. Has slowly returned to baseline cannabis use. Status of Current Problems and Symptoms: Pt's escalating use of cannabis is becoming concerning. Treatment team discussed recent regression. At this point its unclear if regression is due to increased cannabis use or being off his medications for several days. At this point all medications have been called into the pharmacy and verified. We continue to monitor mood and use to gain better clarity on if substance use or being off medications caused regression. Continues to present with depression, passive to fleeting suicidal thoughts, anxiety, limited coping skills, low energy, low motivation, and feelings of worthlessness. He has not returned to work on a consistent basis. Despite limited engagement and follow-through he presents as less anxious, restless, irritable, and depressed than he did in July. Also reports reduction in intensity, severity, and and duration on fleeting SI. Improvement in his ability to discuss past trauma. In July he would pace, cry, and get irritable if asked about trauma, however currently presents at times wanting to discuss and obtain education on trauma. The struggle is that while progress is at times made during IOP treatment he does not take education, skills learned, or suggestions home and implement instead relying on unhealthy coping (cannabis and sleep). Was given 3 week DSM5 cross-cutting scale to complete to assess progress/regression since admission and he has yet to fill it out or return it. so unable to provide outcomes information. Progress Problem #1: Problem Name:: Anxiety/PTSD Status of Goals:: Obj 1- Limited progress. Pt can identify numerous calming and coping strategies (mindfulness, 5 senses, breathing, etc.) however does not practice or implement these skills when in distress. Obj 2- Pt can identify certain trauma triggers and skills to use when triggered however again does not practice or implement these skills when in distress. Team Recommendations:: Plan is to reassess functioning next week once he is compliant with medication for several days. If cannabis presents as primary concern will make referral to SA treatment or more trauma-focused treatment. Problem #2: Problem Name:: Depression Status of Goals:: obj 1- Pt and therapist worked together to develop a behavioral activation plan which he agreed too. This plan is attached to his daily tracker sheet, however pt does not read it, fill it out, or attempt opposite action skills despite insight on the benefits of these when he does use them. Obj 2- Numerous discussions on CBT, mistaken beliefs, and thought reframing. Pt was given a mistaken beliefs questionnaire to fill out (would take 2 minutes) several weeks ago and he has yet to fill it out. Was given thought log and asked to write down just one negative thought per day and he has not followed through. Team Recommendations:: Plan is to reassess functioning next week once he is compliant with medication for several days. If cannabis presents as primary concern will make referral to SA treatment or more trauma-focused treatment.
--- NOTE | 2023-09-30 14:19 | BH.COMM ---
Communication Note Communication with Client Communication Note: Pt did not show today for IOP. Reached out and spoke with mother. No issues and he did receive his medications.
--- NOTE | 2023-10-03 09:05 | BH.SGPN.GN ---
Behaviors/Verbalizations/Mental Status: [] Eye contact is good. Motor activity is appropriate. Appearance is casual. Speech is Appropriate. Mood is anxious. Affect is congruent. Thoughts are linear and logical. No evidence of psychosis. Reviewed daily check in sheet and pt reports 11/02 for suicidal ideations which is significantly below baseline Client Response/Progress/Benefit: [] Daily symptom tracker notes 4/5 for depression and 3/5 for irritation. Notes 1/5 for self-harm urges (baseline). Pt participated at times during the group discussion. Attentive. Shared that he is ?feeling better than last week?. Shared that he was very drowsy and lethargic last week, however do to decreasing certain medications he is more alert. Able to talk with friends yesterday ?which was really good?. Has plans to talk with his employer today. Progress noted. Benefited from group support, encouragement, and feedback. Will continue in IOP to maintain safety, increase healthy coping, and improve functioning. Narrative Note: []
--- NOTE | 2023-10-03 10:07 | BH.SGPN.GN ---
Behaviors/Verbalizations/Mental Status: []Pt alert and oriented, casually dressed and groomed. Eye contact fair. Motor activity appropriate. Speech within normal limits. Affect congruent, mood euthymic. Thoughts linear, logical, no signs of hallucinations or delusions. Client Response/Progress/Benefit: [] Pt was actively engaged, providing input, and taking notes throughout session. Connected with the topic of pitfalls and listened to group discussion on internal and external barriers that prevent from choosing a healthier path to mental wellness. Group worked together to identify examples of personal internal pitfalls and pt identified theirs as isolation, drug use, not giving self credit, avoidance, and distractions. Pt benefited from group as pt learned to better identify and normalize potential barriers to improving mental health symptoms. Pt also gained awareness of the difference between external triggers and self-sabotaging behaviors. Pt will continue IOP tx to increase consistent use of healthy coping skills, improve view of self, and prevent decompensation.
--- NOTE | 2023-10-03 11:07 | BH.SGPN.GN ---
Behaviors/Verbalizations/Mental Status: []Pt alert and oriented, casually dressed and groomed. Eye contact fair to good. Motor activity appropriate. Speech within normal limits. Affect congruent, mood anxious and dysthymic. Thoughts linear, logical, no signs of hallucinations or delusions. Client Response/Progress/Benefit: []Pt receptive of session, engaged throughout AEB actively contributing to small group discussion, as well as taking notes. Pt participated in the experiential activity and did well to communicate ideas with peers and manage emotions. Pt and group processed how being open-minded and having good communication positively impacted the group. Group worked together to identify different coping skills to help manage pitfalls. Pt identified pitfalls they struggle with and shared wanting to work on pitfall of isolation by reminding himself to engage in regular self-care, go into work more consistently, as well as decrease his amount of substance use. Benefited from identifying personal pitfalls and strategies to overcome these pitfalls. Will continue IOP tx to increase consistent use of healthy coping skills, promote mood stability, and continue to improve distress tolerance. Narrative Note: []
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
--- NOTE | 2023-10-07 09:05 | BH.SGPN.GN ---
Behaviors/Verbalizations/Mental Status: [] Pt alert and oriented, neatly dressed and groomed. Eye contact poor. Motor activity restless. Speech within normal limits. Affect flat, mood depressed. Thoughts linear, logical, no signs of hallucinations or delusions. Reviewed pt?s symptom tracker and pt's scores for SI are within his baseline. Client Response/Progress/Benefit: []Pt responded somewhat well to session, engaged when prompted, but otherwise quiet. Pt chose not to share his emotion or stressors with the group today as pt stated I don't think it would be appropriate for group. Pt's head was down today and he was restless. Pt stated he did not have any wins except coming to IOP today and trying to get on a better sleep schedule. Pt had been taking too many medications that made pt tired throughout the day and groggy in the mornings. Pt appeared to benefit from the group offering pt emotional support and encouragement. Pt's progress has been limited due to pt's report of substance use (marijuana) use prevents pt from applying other coping skills to manage triggers. Pt will meet with his individual therapist today. Narrative Note: []
--- NOTE | 2023-10-07 10:00 | BH.MDN ---
Multi-Disciplinary Note Note 45-min Individual: Time Started:: 10:00 Date: 10/07/23 Purpose of session/treatment goals addressed:: Pt reported to [facility] staff that he wanted to leave early again today. [facility] staff contacted therapist to discuss this further with him (he left early on 10/05/23). Eye Contact:: Poor Motor Activity:: Restless Appearance:: Disheveled Speech:: Appropriate Mood:: Anxious and Irritable Affect:: Congruent Thoughts:: Linear, Logical and No evidence of hallucinations/delusions noted Staff Interventions:: psychoeducation on: (addiction cycle) and discharge planning Client Response:: Pt is restless stating that the THC tinctures are not strong enough. He switched from vaping back to his prescribed THC tinctures recently and is concerned b/c they are not as effective as vaping. He is anxious that the THC he has been vaping had Fentanyl mixed in. We discussed this further and after it appeared unlikely he calmed considerably and was smiling and engaged in session. Anxious and fearful that he had been unknowingly ingesting Fentanyl. It has become clear to patient that he is addicted to THC and cannot use it recreationally. Since THC was legally prescribed to him he rationalized his use as medically necessary b/c its prescribed as a medication and has been utilizing it throughout the day which has led to significant addiction. I'm just constantly focused on getting high. He has not attempted to use any healthy coping skills when in distress. He did not even use the emotion management plan we developed 2 days ago. Do you think I can use recreationally or will I have to quit entirely. We discussed addiction, use cycle/pattern, and treatment options. Very complex situation with a mixture of trauma, no motivation to use healthy coping skills, depression, self-harm urges, fleeting SI, and anxiety. He continues to report trauma being primary obstacle to decrease THC use. As we are talking he states he is just thinking about purchasing THC to vape. When he is high he reports feeling great and content. He requests to leave [facility] today so he can purchase THC to vape. Risks/Concerns:: Pt's daily symptom tracker notes decrease in depression and self-harm urges from 10/05/23. He denies active suicidal ideations, plan or intent to this therapist. Verbalizes ability to keep himself safe. Has safety plan saved to his phone and at home. He reports irritability and anxiety related to needing to get high. Focused on leaving IOP to obtain THC. Progress Toward Goals/Plan:: No progress noted. Increased insight that his addiction to THC is significant and he needs it 16/05. Understands that he is addicted and cannot use it recreationally. This is change from his original desire to simply reduce use. Not attempting to use emotion management plans, healthy skills/education learned in IOP, or any other type of intervention aside from THC. Therapist is learning that pt is using THC for daily tasks (cleaning, talking with friends, leaving the house, watching tv, playing video games, etc.) and not just for depression, anxiety, or trauma triggers. Pt represented his use as being related to trauma however this is clearly not the case as he uses throughout the day for enjoyment, to escape, to complete tasks, and as a way to ease stress. Plan is to reach out to his therapist at [facility] to discuss recent substance abuse concerns[facility]. Pt will follow through with plan for intake assessment at [facility] I think that is going to be good for me. [facility] is not the appropriate level of care for patient as trauma and substance abuse are primary issues. Will follow up with this therapist on 10/10/23 to finalize aftercare plan to address trauma and substance abuse.
--- NOTE | 2023-10-10 09:05 | BH.MDN ---
Multi-Disciplinary Note Note 60-min Individual: Time Started:: 09:05 Date: 10/10/23 Purpose of session/treatment goals addressed:: Follow-up from last week. Assess current functioning and substance use. Determine plan. Eye Contact:: Poor Motor Activity:: Restless Appearance:: Casual Speech:: Appropriate Mood:: Depressed Affect:: Congruent Thoughts:: Linear, Logical and No evidence of hallucinations/delusions noted Staff Interventions:: other (determine current substance use. ) Client Response:: Pt states that I made it through a family event this weekend which is good. States I was high all weekend. He was asked to track his THC use over the weekend however he did not follow through with this. It has been challenging to obtain an accurate assessment of his use simply b/c he does not know the extent himself. Unlikely pt will follow through if asked to track again so we attempted to determine this as closely as possible my his memory, which is poor. Pt is currently vaping THC-P (delta 9). He purchases a 2gram cartridge. Best guess would be that he hits the vape anywhere from 10-20 times per day. Wakes up at 5am, vapes, and then goes back to bed till 10am. Then he vapes again about once every 2 hours. Beneficial effects of THC (calm, euphoria, etc.) last for about an hour. Long-term daily use with only sobriety while admitted to psych unit for 10 days in early August 2023. Upon discharge from psych unit he switched from tinctures to vaping which per report are stronger. Use causes lethargy, no motivation, and inability to focus/concentrate). I'm just tired all day. States that he needs the THC to function and accomplish any tasks. Discussed again attempting to reduce he use and reports being motivated. We reviewed strategies to manage urges/cravings and emotional distress. Stressed the importance of knowing how much he uses to gauge if he is decreasing his use. Risks/Concerns:: Denies active suicidal ideations, plan, or intent. Verbalizes ability to keep himself safe. Daily symptom scores are at baseline. Future-oriented (appointment with [facility] therapist). Protective factors (family, pet). Safety plan in place. No access to firearms. Progress Toward Goals/Plan:: No progress noted. Continues to not follow through with simple tasks asked by therapist (track use). Strategies on education employed by IOP staff to increase healthy coping skills, prevent decompensation, stabilize mood, and decrease THC have had limited impact. Pt would benefit most from dual diagnosis treatment. This level of care is currently not helpful. Pt wants to pursue substance abuse counseling at [facility] where his current therapist (Kolby) is located. Left message with Kolby on Tuesday with no return call. Plan to coordinate with Kolby and get him set up with SA services at [facility]. He has appointment with Kolby on 10/13/23. Pt also states that he wants to talk about his trauma as it helps me and he believes this will decrease need to use THC to manage trauma triggers. He is set up with appointment at [facility] on 10/12/23. It would not be beneficial to discharge patient immediately leaving him with no support as he is currently motivated to make changes per his report. Fearful immediate discharge without plan might lead to decompensation. Time Stopped:: 10:05
--- NOTE | 2023-10-10 10:10 | BH.SGPN.GN ---
Behaviors/Verbalizations/Mental Status: [] Eye contact is good. Motor activity is appropriate. Appearance is casual. Speech is Appropriate. Mood is content, smiling during group. Affect is congruent. Thoughts are linear and logical. No evidence of psychosis. Client Response/Progress/Benefit: [] Pt was an active participant in group discussions, providing more input than in prior sessions. Attentive during psychoeducation on the 4 communication styles (Passive, Passive-Aggressive, Aggressive, and Assertive) and the obstacles to effective communication. Contributed during interactive discussion on the benefits of communicating effectively which included; having one's needs met, building connection with others, decreases stress and uncertainty, improved relationships, encouragement/increased motivation, increased trust, and increased understanding of others. Worked well in small group in which pt and peers identified the benefits and disadvantages to the different communication styles, did appear more anxious within the small group setting. Benefited from increased understanding of communication styles and how these can impact effective communication. Pt reports identifying most with passive communication which results in pt not getting his needs met. Will continue in IOP to prevent decompensation, improve mood stability, and continue to improve functioning. Narrative Note: []
--- NOTE | 2023-10-10 11:00 | BH.COMM ---
Communication Note Communication with Client Communication Note: Left after 2nd group reporting a tech emergency at his work which he needed to address.
--- NOTE | 2023-10-11 13:00 | BH.COMM ---
Communication Note Communication with Client Communication Note: This therapist spoke with pt's outpatient therapist Kolby from [facility]. Updated him on concerns regarding substance abuse and recommendation for pt to complete substance abuse assessment. Scheduled to meet with Kolby on 10/13/23 at 1pm. They will discuss and Kolby agreed to link him with SA services at [facility]. Along with SA assessment this therapist has set pt up with an assessment for trauma focused care at [facility] with appointment on 10/12/23. Kolby in agreement with plan for pt to address both trauma and substance abuse struggles at discharge from [facility]. Pt has met maximum benefit from IOP (refer to previous notes). Will follow up with pt's mother regarding progress on obtaining psychiatrist appointment at [place] [id number] (mother agreed to reach out to [place] [id number] a couple weeks ago).
--- NOTE | 2023-10-12 09:00 | BH.COMM ---
Communication Note Communication with Client Communication Note: Pt did not attend IOP today due to having an intake scheduled for Trauma IOP. Due to the importance of getting him linked with trauma work he was excused from IOP and scheduled appointment with psychiatrist.
--- NOTE | 2023-10-14 09:05 | BH.SGPN.GN ---
Behaviors/Verbalizations/Mental Status: [] Pt alert and oriented, neatly dressed and groomed. Eye contact good. Motor activity restless. Speech within normal limits. Affect congruent, mood hopeful. Thoughts linear, logical, no signs of hallucinations or delusions. Reviewed pt?s symptom tracker, no risk for suicidal ideation, plan, or intent 10/14/23 Client Response/Progress/Benefit: []Pt responded well to session, attentive and receptive to feedback. Pt reports feeling nervous this morning as pt is going to try and go longer today without smoking marijuana. Pt stated he acknowledges that he is addicted to marijuana and he has used it for years to cope with his PTSD. Pt shared he is ready to seriously cut back on his use and pt also plans to start a trauma IOP as well. Pt reported he has enjoyed IOP, but he hopes that focusing on his trauma will help pt stop smoking and be more stable. Pt appeared to benefit from peer feedback and encouragement. Pt will meet with IOP therapist next week to discuss plan of care and transitioning to trauma IOP. Narrative Note: []
--- NOTE | 2023-10-14 10:00 | BH.SGPN.GN ---
Behaviors/Verbalizations/Mental Status: [] Client alert and oriented, casually dressed and groomed. Eye contact good. Motor activity appropriate. Speech within normal limits. Affect congruent, mood euthymic. Thoughts linear, logical, no signs of hallucinations or delusions. Client Response/Progress/Benefit: [] Client responded well to session, contributing to discussion and engaged during the activity. Attentive during discussion on the quote. Group identified the benefits of change which included: personal growth, increased confidence, improving mental health, and creating momentum. Worked with the group to identify barriers to change, which included: uncomfortable emotions such as anxiety, lack of motivation, fatigue, pain, and physical barriers. Client participated along with group in activity where they identified and discussed the emotions related to change. Benefited from increased awareness and understanding of emotions, benefits, and barriers related to change. Client expected to discharge from IOP today with satisfactory progress. Will continue IOP tx to continue to prevent decompensation and increase overall functioning. Narrative Note: []
--- NOTE | 2023-10-14 11:10 | BH.SGPN.GN ---
Behaviors/Verbalizations/Mental Status: [] Client alert and oriented, casually dressed and groomed. Eye contact good. Motor activity appropriate. Speech within normal limits. Affect congruent, mood euthymic. Thoughts linear, logical, no signs of hallucinations or delusions. Client Response/Progress/Benefit: [] Client responded well to session, attentive and provided in put throughout. Did well to process activity and work with group to relate the strategies used to overcome barriers in the activity to managing change in own life. Client identified a goal they would like to make is to support desired change is to get his vape use to 0%. Client identified currently being in the action stage for this particular change. Client stated how he is tracking down his use and his why for using to better understand triggers. Appeared to benefit from identifying a small goal to work towards. Client will continue IOP tx to prevent decompensation, gain healthy coping skills, and increase overall functioning. Narrative Note: []
--- NOTE | 2023-10-18 10:17 | BH.SGPN.GN ---
Behaviors/Verbalizations/Mental Status: [Patient was alert and oriented, casually dressed and groomed. Eye contact was good, motor activity normal, speech within normal limits. Affect congruent, mood anxious and content. Thoughts linear, logical, no signs of hallucinations or delusions. ] Client Response/Progress/Benefit: [Patient was an active participant in the group discussions AEB providing input and taking notes. Attentive during psychoeducation Goal Setting. Participated during the discussion on common barriers (procrastination, low motivation, unrealistic expectations, and fear of failure) and benefits (increased confidence, motivation, sense of purpose, and improved mood stability) of effective goal setting and completion. Patient reports struggling specifically with barriers of avoidance via substance abuse and fear of failure. Benefited from increased awareness of mental health benefits of goals as well as psychoeducation on SMART goal criteria. Will d/c today to begin a trauma specific IOP program tomorrow, 10/19/23.] Narrative Note: []
--- NOTE | 2023-10-18 11:05 | BH.SGPN.GN ---
Behaviors/Verbalizations/Mental Status: []Pt alert and oriented, casually dressed, appropriately groomed. Eye contact good. Motor activity appropriate. Speech within normal limits. Affect congruent, mood anxious and euthymic. Thoughts linear, logical, no signs of hallucinations or delusions. Client Response/Progress/Benefit: [] Pt was engaged during discussion and willing to complete the worksheet challenging them to develop a personal SMART goal. Pt chose the goal of using healthy distractions each day to aid in maintaining sobriety. Pt struggled with the measurable pt of SMART goal criteria but did well to complete all other components. stated this will help start morning off feeling more positive about self. Pt identified cravings as a barrier. Identified solutions such as healthy distractions and reaching out to supports. Pt receptive to identifying solutions for these barriers and willing to begin working on this goal. Benefited from this group by developing a short-term SMART goal related to mental health. Will continue d/c from IOP tx to begin a trauma specific IOP starting 10/19/23. Narrative Note: []
--- NOTE | 2023-10-18 12:15 | BH.DS ---
Discharge Summary Demographics Date of Admission:: 09/09/23 Discharge Date: 10/18/23 Presenting Problems at Admission:: Pt was referred back to [facility] after placement in a higher level of care. Pt was in [facility] from 08/08/23- 08/29/23 (refer to previous psychosocial, psychiatry notes, individual counseling notes, group notes, and discharge summary in the EMR) Pt presented to [facility] on 08/29/23 requesting to be admitted to inpatient unit. A voluntary admission was arranged at [facility] from 08/29/23 through 09/06/23 due to suicidal ideations. It was learned on 09/08/23 that he attempted suicide on 08/26/23 by hooking a hose to a tank of helium, putting the hose in a bag, and putting the trash bag over his head. Pt stated he started to feel the impact of the helium and he started to seize then the bag fell off. Pt reported he did not pass out and did not need medical attention. Pt did not notify anyone about his attempt until he was hospitalized. Pt stated on 08/27/23 he got in his bathtub and was planning to cut his wrists with the intent to bleed out. Pt reported he doesn't know why but he chose to not cut himself. Pt stated he came into [facility] on 08/29/23 and reported he needed to be hospitalized, but had not shared with staff at the time about his recent attempt. Pt willingly handed over the helium tank to [facility] staff on 09/08/23. Discharge Diagnoses:: 1. Major depression, recurrent, severe without psychosis 2. PTSD 3. Generalized anxiety disorder 4. Panic disorder 5. Strong cluster B traits 6. THC use disorder Reason for Discharge:: Reached maximum benefit from [facility] level of care. [facility] has helped to stabilize and decrease suicidal ideations and he is better able to process and work on trauma which is primary concern for patient. Treatment Progress During Treatment & Response: Pt has had limited and erratic progress in [facility] level of care for several reasons however most notably THC misuse. Limited engagement in groups and some issues with consistent attendance (often want to leave [facility] early). 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 Has not completed any homework assignments (mistaken beliefs questionnaire, making appointment with trauma IOP, establishing with outpatient psychiatrist, utilizing trauma affirmations, completing behavior activation goals, practicing coping skills, etc.), has limited engagement in groups, and actively chooses THC over practicing coping skills. Preferred to escape through THC when presented with any negative thought or emotion. He had 10 days of progress and some stability after psychiatric unit in which he was engaged, practicing skills, and not utilizing THC to cope. His progress during and immediately after psych unit most likely due to no access to THC and being forced to utilize skills. Treatment team feel that IOP may not be the most appropriate level to care. Presents as more stable than at admission with decreased suicidal ideations and ability to discuss trauma w/o panic attack. According to DSM-5 scores (from 10/05/23) pt notes an overall 28% reduction in symptoms since admission. Depression and anxiety domains did not change, however SI domain decreased 75%. Intrusive thoughts domain decreased by 37%. Did not completed treatment plan goals (refer to treatment plan review). Progress noted since last week as pt reports being sober from THC for 2 days. More engaged in IOP groups today than he has been in several weeks. Overall affect and appearance have improved. States I'm showering. Improved focus, concentration, and memory. Smiling and not lethargic. I had energy to talk today. Since THC was used as a way to self-medicate he does report increased thoughts about trauma which continues to impact anxiety and depression, however is optimistic as he starts trauma treatment tomorrow. Issues Still to be Addressed:: THC misuse, trauma, depression, anxiety, suicidal thoughts, urges to self-harm, anger mgmt, low self-esteem, and mental health impacting his ability to function at home and work. Discharge Recommendations/Instructions:: At this point patient's distress is reported to be related to trauma and THC use (early remission, 2 days). Limited skills and support to manage trauma triggers aside from THC. As [facility] is not trauma or substance abuse focused a referral was made for SA and trauma specific treatment. Pt completed initial intake at [facility] trauma IOP on 10/12/23 with plan to start their program on 10/19/23. This therapist spoke with pt's outpatient therapist (Kolby @ [facility]) who agreed to arrange SA treatment services through [facility]. He completed new patient paperwork for [facility] (psychiatry and ADHD eval). Per website they will reach after completed paperwork in 2-3 weeks. He agrees to make appointment with PCP to reconnect and discuss medication refills in the meantime. Emphasized that if he has any medication issues to reach out to us immediately. He is linked with outpatient therapist and starts trauma IOP tomorrow. Pt has reached maximum benefit from IOP level of care (Refer to previous notes) and treatment team recommends trauma-focused treatment and substance abuse/relapse prevention treatment going forward. Discharge Handout
--- NOTE | 2023-10-18 12:15 | BH.MDN ---
Multi-Disciplinary Note Note 45-min Individual: Time Started:: 12:15 Date: 10/18/23 Purpose of session/treatment goals addressed:: Aftercare plans. Eye Contact:: Good Motor Activity:: Appropriate Appearance:: Casual Speech:: Appropriate Mood:: Anxious and Depressed Affect:: Congruent Thoughts:: Linear, Logical and No evidence of hallucinations/delusions noted Staff Interventions:: discharge planning and other (Developed strategies to manage urges to use. ) Client Response:: Pt presents today in good spirits. States that he has been sober from THC for 2 days. Affect is brighter than usual. Presents as less lethargic and distracted. Admits that his memory, focus, and ability to hold a conversation have improved. Discussed his motivation to stop, struggles that he encountered, and his strategies to maintain his sobriety over the weekend. Insight that he struggled to retain information discussed in IOP and individual counseling sessions in the past due to his THC use. He completed intake assessment at [facility] on 10/12/23. He is optimistic about the program and is looking forward to starting. Connected with intake therapist who specializes in trauma and is hopeful that the trauma specific skills and support will be helpful for his mental health and for his sobriety. Plan is for him to start trauma IOP tomorrow. We reviewed progress in IOP and worked together to identify 3 strategies to combat urges when they occur. Risks/Concerns:: No risks or concerns noted. Denies active SI, plan, or intent. Protective factors, safety plan in place. No access to firearms. Future-oriented (starting trauma treatment tomorrow). Hopeful. Progress Toward Goals/Plan:: Progress noted since last session. Completed trauma treatment intake, sober from THC for 2 days, and was more engaged in IOP groups today than he has been in several weeks. Overall affect and appearance have improved. States I'm showering. Improved focus, concentration, and memory. Smiling and not lethargic. I had energy to talk today. Since THC was used as a way to self-medicate he does report increased thoughts about trauma which continues to impact anxiety and depression, however is optimistic as he starts trauma treatment tomorrow. He completed new patient paperwork for [facility] (psychiatry and ADHD eval). Per website they will reach after completed paperwork in 2-3 weeks. He agrees to make appointment with PCP to reconnect and discuss medication refills in the meantime. Emphasized that if he has any medication issues to reach out to us immediately. He is linked with outpatient therapist and starts trauma IOP tomorrow. Pt has reached maximum benefit to IOP level of care (Refer to previous notes) and treatment team recommends trauma-focused treatment and substance abuse/relapse prevention treatment going forward. Time Stopped:: 01:00
--- NOTE | 2023-10-19 09:10 | BH.SGPN.GN ---
ed to be off the weed to get an accurate evaluation and to work effectively on his mental health and trauma. Also shared with the group that he received a weighted blanket for Xmas which has helped with his sleep as well as his anxiety. He spoke more on the blanket's positive effects. Narrative Note: []
== END 2023-10-19 08:03 | disposition home or self-care (01) ==
LOC: BHIOP 08:55
PROVIDERS: PCP Nurse Practitioner Family; Referring Provider Psychiatry & Neurology Psychiatry; Visit Provider Psychiatry & Neurology Psychiatry
DX: F33.2 Major depressive disorder, recurrent severe without psychotic features (principal); F43.10 Post-traumatic stress disorder, unspecified; F41.0 Panic disorder [episodic paroxysmal anxiety]; F12.90 Cannabis use, unspecified, uncomplicated
CPT/HCPCS: S9480; 90832; 90834; 90837; 90853